=== PATIENT | female | born 1995 | race Caucasian/White ===

== ENCOUNTER 2019-09-02 14:04 | Outpatient (CLI) | payer BC, OTHER, SELFPAY ==
--- NOTE | 2019-09-02 14:15 | US_ITS ---
WS: [id number] EARLY OBSTETRICAL ULTRASOUND (<14 WEEKS). HISTORY: DATING COMPARISON: None available. Single intrauterine gestational sac is identified. Cardiac activity at 131 BPM. Pollock-rump length nanette sures 0.9 cm which corresponds to a gestation of 6w6d. Normal-appearing yolk sac and amnion demonstra karl. Smallsubchorionic hemorrhage.Subchorionic hemorrhage adjacent to the RIGHT lateral gestational s ac measures 14 x 7 mm. No free fluid. Neither ovary is well visualized. US/US OB <= 14 weeks fetus [id number] IMPRESSION: 1. Single intrauterine gestation of 6 weeks 6 days with an EDC of 04/21/2020. 2. Small subchorionic hemorrhage.
== END 2019-09-02 14:05 | disposition home or self-care (01) ==
LOC: RAD 14:13
PROVIDERS: PCP Family Medicine; Visit Provider Family Medicine
DX: Z36.87 Encounter for antenatal screening for uncertain dates (principal); Z3A.01 Less than 8 weeks gestation of pregnancy; O46.8X1 Other antepartum hemorrhage, first trimester
CPT/HCPCS: 76801

== ENCOUNTER 2019-10-23 11:25 | Emergency (ER) | payer BC, OTHER, MEDICAID, SELFPAY ==
[2019-10-23 12:15] VITALS: BP 124/80; PULSE 82; RESP 20; TEMP 36.8; O2SAT 99; BMI 27.3
--- NOTE | 2019-10-23 12:33 | USR_ITS ---
PROCEDURE INFORMATION: Exam: US Abdomen Complete Exam date and time: 10/23/2019 2:05 PM Age: 23 years old Clinical indication: Nausea and vomiting; ; Additional info: Abdominal pain TECHNIQUE: Imaging protocol: Real-time ultrasound of the abdomen with image documentation. COMPARISON: US OB <= 14 weeks fetus [id number] 10/23/2019 1:42 PM FINDINGS: Liver: Normal. No mass. Gallbladder: Normal. No gallstones. There is no gallbladder wall thickening. Common bile duct: Normal. No stones. No dilation. Pancreas: Visualized pancreas is unremarkable. Right kidney: Measures 10.7 x 4.9 x 4.2 cm. No mass. No hydronephrosis. Left kidney: Measures 11.5 x 4.6 x 4.4 cm. No mass. No hydronephrosis. Spleen: Normal. No splenomegaly. Aorta: Normal. No aneurysm. Inferior vena cava: Normal. US/US abdomen complete* [id number] IMPRESSION: No acute findings.
[2019-10-23 12:37] LABS: Basophils % 0.4 %; Eosinophils # 0.1 10^3/uL (0.0-0.8); Eosinophils % 1.8 %; Hematocrit 43.4 % (37.0-47.0); Hemoglobin 14.1 g/dL (11.5-15.3); Lymphocytes # 1.7 10^3/uL (0.8-4.8); Lymphocytes % 23.2 %; Mean Corpuscular HGB Conc 32.5 g/dL (30.0-36.0); Mean Corpuscular Hemoglobin 28.8 pg (28.0-34.0); Mean Corpuscular Volume 88.6 fL (81-99); Mean Platelet Volume 9.9 fL (7.4-10.4); Monocytes # 0.4 10^3/uL (0.2-0.9); Monocytes % 4.9 %; Neutrophils # 5.1 10^3/uL (1.8-7.7); Neutrophils % 69.3 %; Nucleated Red Blood Cells % 0 %; Platelet Count 221 10^3/cmm (130-400); Red Cell Distribution Width 12.3 % (12.1-15.1); White Blood Count 7.4 10^3/uL (4.0-10.0)
[2019-10-23 12:51] LABS: Alanine Aminotransferase 43 U/L (0-33); Albumin Level 4.3 g/dL (3.5-5.2); Alkaline Phosphatase 60 IU/L (35-105); Anion Gap 16.6 (5-19); Aspartate Amino Transferase 25 U/L (0-32); Blood Urea Nitrogen 6 mg/dL (6-20); Calcium 9.2 mg/dL (8.5-10.5); Carbon Dioxide 23 mmol/L (22-29); Chloride 98 mmol/L (98-107); Globulin 3.1 g/dL (1.3-4.6); Glomerular Filtration Rate 123.9 mL/min (90-130); Glucose 96 mg/dL (65-115); Lipase 26 U/L (13-60); Magnesium 2.1 mg/dL (1.7-2.3); Osmolality Calculated 274 mOsm/kg (285-295); Potassium 3.6 mmol/L (3.5-5.1); Sodium 134 mmol/L (136-145); Total Bilirubin 0.2 mg/dL (0.15-1.2); Total Protein 7.4 g/dL (6.6-8.7)
--- NOTE | 2019-10-23 13:15 | USR_ITS ---
PROCEDURE INFORMATION: Exam: US First Trimester, Transabdominal and US , Transvaginal Exam date and time: 10/23/2019 1:47 PM Age: 23 years old Clinical indication: Lmp or gestational age (in weeks): 14 wks 1 day; Other: Nausea/vomiting; ; Additional info: with n/v TECHNIQUE: Imaging protocol: Real-time transabdominal obstetrical ultrasound of the maternal pelvis and a first trimester , less than 14 weeks 0 days, with image documentation. Transvaginal imaging was used for better evaluation of the fetus and adnexa. COMPARISON: US OB <= 14 weeks fetus [id number] 09/02/2019 2:21 PM FINDINGS: There is a single living intrauterine with a heart rate of 157 bpm. movement is identified. The presentation is vertex. The estimated gestational age is 14 weeks and 1 day. US/US OB <= 14 weeks fetus [id number] Impression The estimated gestational age is 14 weeks and 1 day.
[2019-10-23] MEDS: sodium chloride 0.9% 1,000 ML 999 ML IV (13:19)
[2019-10-23] MEDS: metoclopramide 5 mg/mL SDV 2 mL 10 MG IV (13:23)
[2019-10-23 13:30] LABS: Bilirubin Urine Neg (NEGATIVE); Blood Urine Neg (Negative); Glucose Urine UA Norm (Normal); Ketones Urine Negative (Negative); Leukocyte Esterase Urine Negative (Negative); Nitrate Urine Negative (Negative); Protein Urine Neg (Negative); Sulfosalicylic Acid Urine Negative (Negative); Urine Appearance Clear (CLEAR); Urine Color Straw (Yellow); Urobilinogen Urine Norm (Negative); pH Urine 8 (5-7)
[2019-10-23 13:44] LABS: Add Urine Culture? No; Squamous Epithelial Cell Urine 0-4 (0-5)
--- NOTE | 2019-10-23 13:50 | W.ED.NAVMDI ---
HPI - Nausea/Vomiting/Diarrhea General: Chief complaint: Nausea/Vomiting/Diarrhea Stated complaint: , nauseous, dizzy Time Seen by Provider: 10/23/19 12:24 History of Present Illness: HPI Narrative: Analia is a nice 23-year-old female who comes in complaining of feeling lightheaded for the past 3 days. Today she is to began to vomit and prior to that she had only been nauseated. She denies any abdominal pain except for cramping abdominal pain just before she vomits. She does not report any diarrhea, flank pain, dysuria, urinary frequency/urgency, or vaginal discharge or bleeding. Of note the patient is about 12 weeks with her first . Denies any cardiac symptoms such as chest pain, palpitations or shortness of breath. She denies any near-syncope or syncope. She is unaware of anything that makes her symptoms better or worse. Associated nausea: Yes Associated symtoms: Reports dizziness and nausea; Denies altered mental status, change in vision, chest pain, diaphoresis, dysuria, fatigue, headache(s), malaise, palpitations or syncope Review of Systems Const: Denies: fever(s), chills, body aches, fatigue, malaise, night sweats or diaphoresis Eyes: Denies: change in vision, blurry vision or blind spots ENMT: Denies: throat pain, odynophagia, hoarseness, ear or mastoid pain, ear discharge, change in hearing or nasal discharge Card: Denies: chest pain, palpitations, irregular heart rhythm, lightheadedness, syncope, pre-syncope, dyspnea on exertion or orthopnea Resp: Denies: dyspnea, productive cough, non-productive cough, wheezing, hemoptysis or chest congestion GI: Reports: abdominal pain, nausea and vomiting; Denies: hematemesis, coffee ground emesis, heartburn, diarrhea, constipation, GI cramping, hematochezia or melena : Denies: flank pain, dysuria, urinary frequency, urinary urgency, oliguria, urinary incontinence or hematuria Musc: Denies: neck pain, back pain, extremity pain, extremity swelling, joint pain, joint swelling, joint redness, joint warmth or joint stiffness Skin/Breast: Denies: rash, pruritus, erythema, skin tenderness or jaundice Neuro: Reports: dizziness; Denies: headache(s), numbness in extremities, weakness in extremities, sensory changes, lack of coordination, difficulty walking, vertigo, confusion or Slurred speech present Endo: Denies: polyuria, polydipsia, tired all the time, cold intolerance, excessive sweating, flushing, hot flashes or heat intolerance Christian/Lymph: Denies: easy bruising, easy bleeding, petechiae, purpura or enlarged lymph nodes All/Imm: Denies: urticaria, throat swelling, tongue swelling, facial swelling or acute wheezing PFSH ED PFSH: Medical History No pertinent past medical history Surgical History No history of previous surgery Social History Smoking and tobacco status: never smoked Female Reproductive History: Date of last menstrual period: 06/25/19 Physical Exam Const: COMMON NORMALS: no acute distress, patient oriented x3, no limitations, healthy appearing and well nourished EXAM LIMITATIONS: no altered mental status GENERAL APPEARANCE: cooperative, well kempt and well developed HENMT: COMMON NORMALS: normocephalic, atraumatic, hearing grossly normal bilaterally, external ears normal, EAC's normal, Normal external nose present and moist oral mucous membranes HEAD & SCALP: normal to inspection, normocephalic and atraumatic FACE & SINUS: normal facial exam and face symmetric NOSE: Normal external nose present and Normal nares present EXTERNAL EAR: Yes external ears normal EXTERNAL AUDITORY CANAL: EAC's normal MOUTH: Normal oral and palatal mucosa present, lip normal and tongue normal Eye: COMMON NORMALS: Equal, round and reactive pupils present, EOMs intact bilaterally, conjunctivae normal and no scleral icterus GENERAL EYE: appearance normal, both eyes and all related structures ALIGNMENT: Yes alignment normal PERIORBITAL: periorbital findings normal EYELID: eyelids normal CONJUNCTIVA: Yes conjunctivae normal SCLERA: sclerae normal PUPIL: Yes Equal, round and reactive pupils present Neck/C-Spine: COMMON NORMALS: full ROM, no lymphadenopathy, supple, no meningeal signs and no JVD GENERAL: Yes normal visual inspection and Yes trachea midline CERVICAL SPINE: Yes cervical ROM normal Chest: COMMONS NORMALS: normal inspection of the chest and normal palpation of entire chest wall Resp: COMMON NORMALS: normal respiratory effort, No retractions, No use of accessory muscles and clear to auscultation bilaterally EFFORT & INSPECTION: Yes able to speak in complete sentences AUSCULTATION: clear to auscultation bilaterally, no crackles, no rales, no rhonchi and no wheezes Cardio: COMMON NORMALS: no JVD, regular rate, regular rhythm, S1 normal heart sound present, S2 normal heart sound present, No gallops present (Cardio), No clicks present (Cardio), No murmurs present (Cardio) and No rub (Cardio) RATE: regular rate RHYTHM: regular rhythm HEART SOUNDS: S1 normal heart sound present, S2 normal heart sound present, no click, no gallops, no murmurs and no rubs GI: COMMON NORMALS: Soft to palpation, non-tender, No hepatosplenomegaly present and no masses PALPATION: Yes Soft to palpation, No Tenderness to palpation present (GI), No Guarding due to palpation present (GI), No Rigid due to palpation, Yes No hepatosplenomegaly present, No Hernia present, No Palpable mass present and No Pulsatile mass present : COMMON NORMALS: Yes no CVA tenderness BLADDER/KIDNEY EXAM: Yes no CVA tenderness EXTERNAL FEMALE EXAM: No Hernia present Back/Pelvis: COMMON NORMALS: no CVA tenderness, thoracic and lumbar spine normal to inspection, no thoracic nor lumbar tenderness and thoraco-lumbar ROM normal Extremity: COMMON NORMALS: normal to inspection, full ROM, capillary refill normal, no joint enlargement, no clubbing, cyanosis or edema and no calf tenderness Neuro: COMMON NORMALS: patient oriented x3, CN's II-XII intact bilaterally, moves all extremities, no focal motor deficits and no sensory deficits noted MENINGEAL SIGNS: Yes no meningeal signs SPEECH: speech normal Psych: COMMON NORMALS: mental status grossly normal, Normal thought process present, cooperative, normal affect, speech normal and activity/motor behavior normal APPEARANCE: Yes well kempt SPEECH: Yes normal speech THOUGHT PROCESS: Normal thought process present Skin: COMMON NORMALS: no rashes or lesions noted, turgor normal, no jaundice, no petechiae and no mottling GENERAL SKIN EXAM: no rashes or lesions noted and turgor normal Course ED course: Orthostatic vital signs, normal but patient symptomatic. Vital Signs: Vital signs: Vital Signs Temperature 98.2 F 05/24/20 12:15 Pulse Rate 82 10/23/19 12:15 Respiratory Rate 20 H 10/23/19 12:15 Blood Pressure 124/80 10/23/19 12:15 Pulse Oximetry 99 10/23/19 12:15 MDM - Nausea/Vomiting/Diarrhea MDM Narrative: Medical decision making narrative: Kaylin is a nice 23-year-old female who comes in with lightheadedness and nausea. She is vomited so many times that she is now dry heaving. She denies any other symptoms such as chest pain, shortness of breath, leg pain or swelling, or fever. She only has mild cramping abdominal pain right before she vomits but at no other time. She has no lower abdominal pain. She has no urinary symptoms or vaginal discharge/bleeding. After Reglan and 2 L normal saline the patient is feeling much better. I have reviewed the case in full with Dr. Ortiz who is agreeable to recheck the patient in his office in the next few days. The patient understands though it is important to stay hydrated with her and she agrees to return should her symptoms worsen at all. Lab Data: Attestation: I reviewed the patient's lab results. Labs: Lab Results 10/23/19 10/23/19 10/23/19 Range/Units 12:30 12:30 12:30 WBC 7.4 (4.0-10.0) 10^3/ uL RBC 4.90 (4.1-5.3) 10^6/u L Hgb 14.1 (11.5-15.3) g/dL Hct 43.4 (37.0-47.0) % MCV 88.6 (81-99) fL MCH 28.8 (28.0-34.0) pg MCHC 32.5 (30.0-36.0) g/dL RDW 12.3 (12.1-15.1) % Plt Count 221 (130-400) 10^3/c mm MPV 9.9 (7.4-10.4) fL Neut % (Auto) 69.3 % Lymph % (Auto) 23.2 % [place] % (Auto) 4.9 % Eos % (Auto) 1.8 % Baso % (Auto) 0.4 % Neut # (Auto) 5.1 (1.8-7.7) 10^3/u L Lymph # (Auto) 1.7 (0.8-4.8) 10^3/u L [place] # (Auto) 0.4 (0.2-0.9) 10^3/u L Eos # (Auto) 0.1 (0.0-0.8) 10^3/u L Baso # (Auto) 0.0 (0.0-0.1) 10^3/u L Nucleated RBC % (a uto) 0 % Nucleated RBCs # 0.0 /100WBC Sodium 134 L (136-145) mmol/L Potassium 3.6 (3.5-5.1) mmol/L Chloride 98 (98-107) mmol/L Carbon Dioxide 23 (22-29) mmol/L Anion Gap 16.6 (5-19) BUN 6 (6-20) mg/dL Creatinine 0.6 (0.5-0.9) mg/dL GFR Calculation 123.9 (90-130) mL/min Glucose 96 (65-115) mg/dL Calculated Osmolal ity 274 L (285-295) mOsm/k g Calcium 9.2 (8.5-10.5) mg/dL Magnesium 2.1 (1.7-2.3) mg/dL Total Bilirubin 0.2 (0.15-1.2) mg/dL AST 25 (0-32) U/L ALT 43 H (0-33) U/L Alkaline Phosphata se 60 (35-105) IU/L Total Protein 7.4 (6.6-8.7) g/dL Albumin 4.3 (3.5-5.2) g/dL Globulin 3.1 (1.3-4.6) g/dL Lipase 26 (13-60) U/L Urine Color Straw (Yellow) Urine Appearance Clear (CLEAR) Urine pH 8 H (5-7) Ur Specific Gravit y 1.010 (1.005-1.030) Urine Protein Neg (Negative) Urine Glucose (UA) Norm (Normal) Urine Ketones Negative (Negative) Urine Blood Neg (Negative) Urine Nitrate Negative (Negative) Urine Bilirubin Neg (NEGATIVE) Prot Sulfosalicyli c Acd Negative (Negative) Urine Urobilinogen Norm (Negative) mg/dL Ur Leukocyte Aida ase Negative (Negative) Urine RBC None (0-2) /hpf Urine WBC None (0-5) /hpf Ur Squamous Epith Cells 0-4 H (0-5) Urine Bacteria None (NONE) Imaging Data^: US: Radiologist's impression: [address] [address] Ultrasound Report Signed Patient: Analia Alejandro Unit #: [id number] : 1995 Age/Sex: 23 / F ADM Date: 10/23/19 Loc: ER Room/Bed: Attending Dr: Ordering Provider/Ordering MD: Irma Colon DO Date of Service: 10/23/19 Procedure(s): US abdomen complete* [id number] Accession Number(s): [id number] Report Number: [id number] PROCEDURE INFORMATION: Exam: US Abdomen Complete Exam date and time: 10/23/2019 2:05 PM Age: 23 years old Clinical indication: Nausea and vomiting; ; Additional info: Abdominal pain TECHNIQUE: Imaging protocol: Real-time ultrasound of the abdomen with image documentation. COMPARISON: US OB <= 14 weeks fetus [id number] 10/23/2019 1:42 PM FINDINGS: Liver: Normal. No mass. Gallbladder: Normal. No gallstones. There is no gallbladder wall thickening. Common bile duct: Normal. No stones. No dilation. Pancreas: Visualized pancreas is unremarkable. Right kidney: Measures 10.7 x 4.9 x 4.2 cm. No mass. No hydronephrosis. Left kidney: Measures 11.5 x 4.6 x 4.4 cm. No mass. No hydronephrosis. Spleen: Normal. No splenomegaly. Aorta: Normal. No aneurysm. Inferior vena cava: Normal. US/US abdomen complete* [id number] IMPRESSION: No acute findings. Dictated By: Norbert Ryder MD Signed By: Norbert Ryder MD Signed Date/Time: 10/23/19 1448 DD/ 1446 US OB: Radiologist's impression: [address] [address] Ultrasound Report Signed Patient: Analia Alejandro Unit #: [id number] : 1995 Age/Sex: 23 / F ADM Date: 10/23/19 Loc: ER Room/Bed: Attending Dr: Ordering Provider/Ordering MD: Irma Colon DO Date of Service: 10/23/19 Procedure(s): US OB <= 14 weeks fetus [id number] Accession Number(s): [id number] Report Number: [id number] PROCEDURE INFORMATION: Exam: US First Trimester, Transabdominal and US , Transvaginal Exam date and time: 10/23/2019 1:47 PM Age: 23 years old Clinical indication: Lmp or gestational age (in weeks): 14 wks 1 day; Other: Nausea/vomiting; ; Additional info: with n/v TECHNIQUE: Imaging protocol: Real-time transabdominal obstetrical ultrasound of the maternal pelvis and a first trimester , less than 14 weeks 0 days, with image documentation. Transvaginal imaging was used for better evaluation of the fetus and adnexa. COMPARISON: US OB <= 14 weeks fetus [id number] 09/02/2019 2:21 PM FINDINGS: There is a single living intrauterine with a heart rate of 157 bpm. movement is identified. The presentation is vertex. The estimated gestational age is 14 weeks and 1 day. US/US OB <= 14 weeks fetus [id number] Impression The estimated gestational age is 14 weeks and 1 day. Dictated By: Norbert Ryder MD Signed By: Norbert Ryder MD Signed Date/Time: 10/23/191445 DD/ 1445 Discharge Plan Discharge Patient Disposition: Home, Self-Care Clinical Impression: Dehydration Vomiting Qualifiers: Vomiting type: unspecified Vomiting Intractability: non-intractable Nausea presence: with nausea Qualified Code(s): R11.2 - Nausea with vomiting, unspecified Condition: Stable Prescriptions: New Reglan 10 mg tablet 10 mg PO Q6H PRN (Reason: nausea and vomiting) Qty: 20 RF: 0 No Action cetirizine 10 mg Tablet 10 mg PO DAILY RF: 0 Sleep Aid (diphenhydramine) 25 mg Capsule 25 mg PO BEDTIME PRN (Reason: Sleep) RF: 0 28 mg iron- 800 mcg Tablet 1 tab PO DAILY RF: 0 Discharge Orders: Discharge Order (Routine); Ordered 10/23/19 Ordered By: Irma Colon Referrals: Loi Ortiz MD [Primary Care Provider] - 1-3 days Discharge Diet: Advance as tolerated and Clear Liquid Discharge Activity: Increase activity as tolerated Patient Instructions: Dehydration (ED), Acute Nausea and Vomiting (ED), Abdominal Pain (ED) Activity Restrictions/Additional Instructions: Please return to the ER immediately for any of the signs or symptoms listed on your discharge instruction sheets, worsening/changing of your symptoms, you are not getting better as quickly as expected, or for ANY other cause or concerns. Be certain to follow-up with Dr. Ortiz as soon as possible for recheck. Be certain to return to the ER if your abdominal pain or vomiting return. Coding Level of Care Code ED [employer] F[employer] Exam Comprehensive
[2019-10-23] MEDS: acetaminophen 500 mg Tablet 1000 MG PO (15:37)
[2019-10-23 15:39] VITALS: BP 113/68; PULSE 89; RESP 16; O2SAT 100
== END 2019-10-23 15:47 | disposition home or self-care (01) ==
PROVIDERS: Emergency Provider Emergency Medicine; PCP Family Medicine
DX: O26.891 Other specified pregnancy related conditions, first trimester (principal); E86.0 Dehydration; R11.2 Nausea with vomiting, unspecified; Z3A.12 12 weeks gestation of pregnancy
CPT/HCPCS: 12345; 36415; 76700; 76801; 80053; 81001; 83690; 83735; 85025; 96360; 96361; 96374; 99283; J2765; J7030

== ENCOUNTER 2019-12-02 07:03 | Outpatient (CLI) | payer BC, OTHER, SELFPAY ==
--- NOTE | 2019-12-02 07:18 | US_ITS ---
WS: [id number] ULTRASOUND OB COMPLETE TECHNIQUE: Complete ultrasound. CLINICAL INFORMATION: SUPERVISION OF NORMAL COMPARISON: None. FINDINGS: Single interuterine gestation is identified with cephalic presentation. Placenta is right posterior. Placenta grade 0. Normal amniotic fluid volume. cardiac activity: 150 BPM. AGA: 20w0d LILLY by ultrasound: 04/20/2020 Estimated weight: 327 g BDP: 4.7 cm = 20w1d HC: 17.7 cm = 20w1d AC: 14.6 cm = 19w6d FEMUR LENGTH: 3.2 cm = 20w0d Anatomic survey: Anatomic survey is normal. Normal stomach. Kidneys and bladder are normal. Normal 3 vessel cord. Norm al 3 vessel cord insertion. Normal 4 chamber heart. Normal spine. Intracranial contents are normal. N ormal posterior fossa and cisterna magna. US/US OB >= 14 weeks fetus [id number] IMPRESSION: 1. Single intrauterine with visualized cardiac activity. AGA 20w0d w ith LILLY 04/20/2020. 2. Placenta is posterior. No evidence of abruption or previa. 3. anatomic survey is normal. 4. Normal amniotic fluid volume. 5. Cervix 4.1 cm
== END 2019-12-02 07:04 | disposition home or self-care (01) ==
LOC: RAD 07:09
PROVIDERS: PCP Family Medicine; Visit Provider Family Medicine
DX: Z34.92 Encounter for supervision of normal pregnancy, unspecified, second trimester (principal); Z3A.20 20 weeks gestation of pregnancy
CPT/HCPCS: 76805

== ENCOUNTER → 2020-01-20 08:12 | Day surgery (SDC) | payer BC, OTHER, MEDICAID, SELFPAY ==
[2020-01-20 08:32] VITALS: BP 120/71; PULSE 109; RESP 18; TEMP 36.6; O2SAT 97
[2020-01-20 11:29] VITALS: BP 117/62; PULSE 109; RESP 18; TEMP 37.1; O2SAT 87
== END ==
PROVIDERS: PCP Family Medicine; Visit Provider Family Medicine
DX: Z34.00 Encounter for supervision of normal first pregnancy, unspecified trimester (principal)
CPT/HCPCS: 36415; 86850; 86900; 90384; 96372

== ENCOUNTER 2020-04-14 10:57 | Outpatient (CLI) | payer BC, OTHER, MEDICAID, SELFPAY ==
[2020-04-15 00:18] LABS: Total Volume, Urine 1650 mL; Urine Total Protein 24 Hour 6.3 mg/dL (0-150)
--- NOTE | 2020-04-16 20:51 | P.HP_ITS ---
Providers/Chief Complaint Primary Care Provider: Loi Ortiz MD Chief Complaint: SUPERVISION,NORMAL History of Present Illness Analia Alejandro is a 24 year old at 39.1 weeks gestation by 6-week ultrasound inconsistent with LMP. Her is complicated by Rh-, elevated 1 hour GTT with normal 3-hour GTT, GBS positive, gestational hypertension. The patient had been feeling well up until late last week when she began to have borderline blood pressures in the upper 130s and lower 140s systolic. She then began to have intermittent chest pains with dizziness and headache associated with activity that was improved with rest. The patient had labs over the weekend and did not have signs of preeclampsia, and her symptoms improved, however her blood pressures have persisted in the 140s systolic. For this reas on she was brought in for induction of labor secondary to gestational hypertension in order to prevent this from progressing to more severe disease. The patient currently denies any chest pains, shortness of breath, headache, flashes of light, nausea, vision changes, vaginal bleeding, leakage of fluid, contractions. Medications/Allergies Home Medications Medication Instructions Recorded Confirmed Last Taken Type PNV cmb#95-ferrous fumarate-FA 1 tab PO DAILY 10/23/19 01/20/20 10/22/19 History [] cetirizine 10 mg PO DAILY 10/23/19 01/20/20 01/19/20 20:00 History diphenhydramine HCl [Sleep Aid 25 mg PO BEDTIME PRN 10/23/19 01/20/20 10/22/19 History (diphenhydramine)] Allergies Allergy/AdvReac Type Severity Reaction Status Date / Time latex Allergy ALGY-Rash Verified 10/23/19 12:21 PFSH Acute PFSH: Medical History (Updated 04/16/20 @ 20:56 by Loi Ortiz MD) No pertinent past medical history Surgical History (Updated 04/16/20 @ 20:53 by Loi Ortiz MD) H/O right knee surgery No history of previous surgery Family History (Updated 04/16/20 @ 20:54 by Loi Ortiz MD) Mother Behcet's disease Rheumatoid arthritis Lung disease Social History Smoking and tobacco status: never smoked Female Reproductive History: Date of last menstrual period: 01/25/20 Physical Exam Narrative: EXAM NARRATIVE: General: Alert and oriented x3 Eyes: Pupils equal round and reactive to light and accommodation Mouth: Mucous membranes moist, pharynx non-erythematous Cardiac: Regular rate and rhythm without murmurs Lungs: Clear to auscultation bilaterally without wheezes, crackles or rhonchi Abdomen: Soft, non-tender, fundus consistent with gestational age Extremities: +1 pitting edema in the bilateral lower extremities A&P Assessment and plan (1) Intrauterine : Status: Acute (2) Gestational hypertension: Status: Acute (3) Rh negative state in antepartum period: Status: Acute (4) Positive GBS test: Status: Acute Additional A&P Information The patient is being brought in for induction of labor secondary to gestational hypertension. She is currently feeling well. Cytotec has been placed as her initial cervical exam was 1 cm dilated with 20% effacement and posterior location. heart tones are category 1 tracing and the patient does not have any contractions. I discussed the benefits of induction of labor versus risks and the patient was in agreement with induction. We discussed the Cytotec and Pitocin for induction of labor specifically. All questions were answered. Proceed with routine induction of labor for gestational hypertension. Labs do not show signs of complications at this time. Attestations Medical Necessity Statement*: Patient will be here for greater than 2 midnights due to routine intrapartum and management of labor and delivery. Coding Level of Care Code Acute [employer] Fwd Diagnoses Intrauterine Z34.90 Gestational hypertension O13.9 Rh negative state in antepartum period O26.899; Z67.91 Positive GBS test B95.1
== END 2020-04-14 10:58 | disposition home or self-care (01) ==
LOC: LAB 10:59
PROVIDERS: PCP Family Medicine; Visit Provider Family Medicine
DX: Z34.00 Encounter for supervision of normal first pregnancy, unspecified trimester (principal); R03.0 Elevated blood-pressure reading, without diagnosis of hypertension
CPT/HCPCS: 12345; 84156

== ENCOUNTER 2020-04-16 18:00 | Inpatient (IN) | payer BC, OTHER, SELFPAY ==
[2020-04-16] VITALS (10 sets, daily range): BP systolic 0–146; BP diastolic 0–86; PULSE 67–98; RESP 17; TEMP 37; BMI 32.7
[2020-04-16] MEDS: miSOPROStol 100 mcg tablet 25 MCG VAGINAL ×2 (19:29→23:28)
[2020-04-16 19:50] LABS: Basophils % 0.3 %; Eosinophils # 0.1 10^3/uL (0.0-0.8); Eosinophils % 1.4 %; Hematocrit 34.1 % (37.0-47.0); Hemoglobin 10.9 g/dL (11.5-15.3); Lymphocytes # 1.8 10^3/uL (0.8-4.8); Lymphocytes % 24.4 %; Mean Corpuscular Hemoglobin 27.3 pg (28.0-34.0); Mean Corpuscular Volume 85.5 fL (81-99); Mean Platelet Volume 12.1 fL (7.4-10.4); Monocytes # 0.5 10^3/uL (0.2-0.9); Monocytes % 6.9 %; Neutrophils # 4.81 10^3/uL (1.8-7.7); Neutrophils % 66.6 %; Nucleated Red Blood Cells % 0 %; Platelet Count 231 10^3/cmm (130-400); Red Blood Count 3.99 10^6/uL (4.1-5.3); Red Cell Distribution Width 13.2 % (12.1-15.1); White Blood Count 7.2 10^3/uL (4.0-10.0)
--- NOTE | 2020-04-16 19:53 | ANES.PREANE2 ---
Pre-Anesthetic Assessment Pre-Anesthetic Assessment: Height/Weight: Height 1.73 m Pulse BP 93 136/81 04/16/20 19:35 04/16/20 19:35 Preop Diagnosis: IUP Proposed Procedure: Labor epidural Familial anesthetic complications: denies Was Beta Mike taken within 24 hours: N/A Last Intake: 04:29 Social: Social History: No alcohol and No tobacco Exam: Pre-Anes Outpt Exam: alert, oriented x 3 and clear to auscultation bilaterally Airway: Submandibular: WNL Cervical ROM: WNL MP: 1 Pulmonary: Pulmonary: None reported CV/HEM: CV/HEM: HTN : : None reported Hepatic: Hepatic: None reported GI: GI: GERD Metabolic: Metabolic: DM (controlled with diet and exercise ) Musc/skel: Musc/skel: None reported Neuropsych: Neuropsych: None reported Anesthetic Plan: ASA status: 2 Anesthesia: Anesthesia Evaluation and Eval. for regional block (epidural) Meds/Allergies Current Medications: Current Medications Generic Name Dose Route Start Last Admin Trade Name Joshq PRN Reason Stop Dose Admin Misoprostol 25 mcg 04/16/20 19:15 04/16/20 19:29 Misoprostol 100 Mcg Tablet VAGINAL 04/17/20 03:16 25 mcg Q4H TARUN Administration PFSH Anesthesia PFSH: Medical History No pertinent past medical history Surgical History No history of previous surgery Social History Smoking and tobacco status: never smoked Female Reproductive History: Date of last menstrual period: 06/25/19 Data Anesthesia CBC & Chem 7: 04/16/20 18:48 04/16/20 18:45 Other Labs: Laboratory Results - last 48 hr 04/16/20 18:48 WBC 7.2 RBC 3.99 L Hgb 10.9 L Hct 34.1 L MCV 85.5 MCH 27.3 L MCHC 32.0 RDW 13.2 Plt Count 231 MPV 12.1 H Neut % (Auto) 66.6 Lymph % (Auto) 24.4 [place] % (Auto) 6.9 Eos % (Auto) 1.4 Baso % (Auto) 0.3 Neut # (Auto) 4.81 Lymph # (Auto) 1.8 [place] # (Auto) 0.5 Eos # (Auto) 0.1 Baso # (Auto) 0.0 Nucleated RBC % (auto) 0 Nucleated RBCs # 0.0 Cardiac Studies: No Data to Display
[2020-04-16 20:11] LABS: Alanine Aminotransferase 14 U/L (0-33); Albumin Level 3.5 g/dL (3.5-5.2); Alkaline Phosphatase 112 IU/L (35-105); Anion Gap 15.6 (5-19); Aspartate Amino Transferase 15 U/L (0-32); Blood Urea Nitrogen 6 mg/dL (6-20); Calcium 8.4 mg/dL (8.5-10.5); Carbon Dioxide 20 mmol/L (22-29); Chloride 107 mmol/L (98-107); Globulin 2.5 g/dL (1.3-4.6); Glomerular Filtration Rate 122.8 mL/min (90-130); Glucose 146 mg/dL (65-115); Osmolality Calculated 288 mOsm/kg (285-295); Potassium 3.6 mmol/L (3.5-5.1); Sodium 139 mmol/L (136-145); Total Bilirubin 0.2 mg/dL (0.15-1.2); Uric Acid 5.8 mg/dL (2.4-5.7)
[2020-04-16 20:20] LABS: D Dimer 0.63 ug/mIFEU (0-0.59)
[2020-04-16 20:52] LABS: Urine Creatinine 171 mg/dL (28-217); Urine Protein Random 20 mg/dL
[2020-04-16 20:56] LABS: UPRO/UCREAT Ratio 0.12 mg/mg CR
[2020-04-16] MEDS: dextrose 5%-lactated ringers 1,000 ML 125 ML IV (22:00)
[2020-04-16] MEDS: ampicillin 2,000 MG in sodium chloride 0.9% (plus) 50 ML 100 MG IV (22:00)
[2020-04-17] VITALS (33 sets, daily range): BP systolic 0–154; BP diastolic 0–95; PULSE 67–105; RESP 15; TEMP 36.6–36.8
[2020-04-17] MEDS: ampicillin 1,000 MG in sodium chloride 0.9% (plus) 50 ML 100 MG IV ×6 (02:14→23:17)
[2020-04-17] MEDS: miSOPROStol 100 mcg tablet 25 MCG VAGINAL (03:56)
--- NOTE | 2020-04-17 08:29 | PM.PN ---
Subjective Subjective: Interval history: The patient is feeling well at this time. She received 3 doses of Cytotec overnight. She did not make much cervical change with this. heart tones are in the mid 130s with moderate variability good accelerations. The patient has not had any bleeding or leakage of fluid. Vitals/I&O/Wt Last Vital Signs Temp 97.8 F 04/17/20 07:25 Pulse 83 04/17/20 07:13 Resp 17 04/16/20 19:08 BP 131/75 04/17/20 07:13 04/16/20 04/17/20 04/17/20 22:59 06:59 14:59 Intake Total 50 / 50 Balance 50 / 50 Weight last 48 hrs Weight 209 lb Physical Exam Narrative: EXAM NARRATIVE: General: Alert and oriented x3 Cardiac: Regular rate and rhythm without murmurs Lungs: Clear to auscultation bilaterally without wheezes, crackles or rhonchi Abdomen: Soft, non-tender, fundus consistent with gestational age Extremities: +1 pitting edema in the bilateral lower extremities Data : 04/16/20 18:48 04/16/20 18:45 A&P Additional A&P Information Patient is feeling well at this time. She is miquel irregularly every 2 to 5 minutes. She received 3 doses of Cytotec overnight. She did not make much cervical change and is still 1 cm dilated with approximately 30% effacement. Patient's heart tones are in the mid 130s with moderate variability and good accelerations with a category 1 tracing. Blood pressures are currently in the 130s systolic. We will plan to let her have a short break and eat. After this we will plan to start IV Pitocin. If the patient is not making cervical change adequately, we may need to step back and place a Nolan bulb. The plan was discussed with the patient and her and they are in agreement with the current plan of care. All questions were answered. Attestations Medical Necessity Statement*: The patient will be here for greater than 2 midnights due to intrapartum and management of labor and delivery. Coding Level of Care Code Acute Health Care Manager for Mine Gallardo
[2020-04-17] MEDS: oxytocin 30 UNIT/500 ML BAG 4 UNIT IV (10:21)
[2020-04-17] MEDS: dextrose 5%-lactated ringers 1,000 ML 125 ML IV ×2 (11:13→19:55)
[2020-04-17 17:15] LABS: Coronavirus Lab Test PTC Negative
[2020-04-17] MEDS: butorphanol 2 mg/mL SDV 1 mL 1 MG IVP (19:27)
[2020-04-18] VITALS (135 sets, daily range): BP systolic 0–176; BP diastolic 0–115; PULSE 46–116; RESP 14–18; TEMP 36.6–38.8; O2SAT 86–100
[2020-04-18] MEDS: ampicillin 1,000 MG in sodium chloride 0.9% (plus) 50 ML 100 MG IV ×4 (03:41→15:10)
[2020-04-18] MEDS: dextrose 5%-lactated ringers 1,000 ML 125 ML IV ×2 (03:41→15:10)
[2020-04-18] MEDS: butorphanol 2 mg/mL SDV 1 mL 1 MG IVP (05:26)
[2020-04-18] MEDS: lactated ringers 1,000 ML 999 ML IV (06:27)
--- NOTE | 2020-04-18 07:28 | ANES.PROC ---
Anesthesia Procedures Procedure/Date: 04/18/20 Epidural: Time Out Performed: Yes Consents Signed: Procedure Consent Consent: requested by attending/covering physician Lumbar Level: L3-L4 Epidural position: sitting Epidural procedure: sterile prep of area, 1% lidocaine to numb the area, 18 g needle, negative for paresthesia passed, neg for paresthesia, test dose given, 1.5% xylocaine 1:200k epi (5ml), placed PCEA, no systemic response, sterile dressing applied, L.U.D. no apparent complications and 0.2% Ropiavacaine @ mls/hr (13)
--- NOTE | 2020-04-18 08:34 | PM.PN ---
Subjective Subjective: Interval history: Yesterday evening the patient was not making significant change after 3 dose of Cytotec and IV Pitocin, so a Nolan bulb was placed. This came out after a couple of hours and she was 4 cm dilated. Overnight she continued to contract and by this morning requested an epidural. She is currently comfortable with an epidural. She denies any headaches or seeing spots. Vitals/I&O/Wt Last Vital Signs Temp 98.6 F 04/18/20 06:51 Pulse 83 04/18/20 08:23 Resp 18 04/18/20 06:51 BP 156/78 04/18/20 08:23 Pulse Ox 86 L 04/18/20 07:24 04/17/20 04/18/20 04/18/20 22:59 06:59 14:59 Intake Total 1061.8 / 7340.286 9143.300 / 2547.033 Balance 1061.8 / 9877.832 3225.300 / 2547.033 Weight last 48 hrs Weight 209 lb Physical Exam Narrative: EXAM NARRATIVE: General: Alert and oriented x3 Cardiac: Regular rate and rhythm without murmurs Lungs: Clear to auscultation bilaterally without wheezes, crackles or rhonchi Abdomen: Soft, non-tender, fundus consistent with gestational age Extremities: +1 pitting edema in the bilateral lower extremities Data : 04/16/20 18:48 04/16/20 18:45 A&P Additional A&P Information SROM took place at approximately 4:30 AM on 04/18/2020. The patient received a laboring epidural and initially had some lights afterwards, however these improved with decreasing Pitocin and position change with fluid bolus. Currently heart tones are in the mid 150s with moderate variability but accelerations. There is a category 1 tracing currently. Contractions are currently sporadic every 2 to 5 minutes. We will work on gradually increasing the Pitocin as tolerated. We will work on position changes and follow from there. Currently the patient is only 5 cm dilated with 90% effacement. Continue with induction of labor at this time. All questions were answered. The patient and her are in agreement with the current plan of care. Attestations Medical Necessity Statement*: The patient continues need inpatient care for induction of labor. Coding Level of Care Code Acute Counterintelligence Specialist for Miladisg Paulina
[2020-04-18] MEDS: GENTAMICIN IV (16:41)
[2020-04-18] MEDS: SODIUM CHLORIDE 0.9% IV (16:41)
[2020-04-18] MEDS: labetalol 5 mg/mL SDV 20mL 20 MG IVP (17:30)
[2020-04-18] MEDS: clindamycin 900 MG/50 ML PREMIX 100 MG IV (18:14)
[2020-04-18] MEDS: miSOPROStol 200 mcg Tablet 800 MCG PR (19:30)
[2020-04-18] MEDS: lidocaine 2% INJ 20 mL INJECTION (19:34)
[2020-04-18] MEDS: oxytocin 30 UNIT/500 ML BAG 600 UNIT IV (19:37)
--- NOTE | 2020-04-18 20:51 | PM.DELIVERY ---
Delivery Note: Date of delivery: April 18, 2020 Pre-delivery diagnoses: 1. Intrauterine at 39.3 weeks gestation 2. Rh- 3. Elevated 1 hour GTT with normal 3-hour GTT 4. GBS positive 5. Gestational hypertension 6. Prolonged rupture of membranes with intrapartum fever Post-delivery diagnoses: 1. Intrauterine status post spontaneous vaginal delivery at 39.3 weeks gestation 2. Rh- 3. Elevated 1 hour GTT with normal 3-hour GTT 4. GBS positive 5. Gestational hypertension 6. Prolonged rupture of membranes with intrapartum fever 7. Delivery of healthy infant male weighing 6 pounds 12 ounces with Apgars of 7 and 9 with noted congenital abnormalities Procedure: Spontaneous vaginal delivery Op report anesthesia: Epidural Delivering Physician: Loi Ortiz MD Estimated blood loss (mL): 200 Findings: Analia Alejandro is a 24 year old G1 now P1 status post spontaneous vaginal delivery at 39.3 weeks gestation by 6-week ultrasound inconsistent with LMP. Her is complicated by Rh-, elevated 1 hour GTT with normal 3-hour GTT, GBS positive, gestational hypertension. 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 Pre-Delivery Course: The patient was brought in for induction of labor on the evening of 04/16/2020 secondary to new onset gestational hypertension. Her initial exam was 3. She was given 3 doses of Cytotec and did not make significant change. The following morning she was started on IV Pitocin. By that evening she had made minimal change but her cervix was minimal to a Nolan bulb placed. A Nolan bulb was placed and a couple of hours later came out and she was 4 cm dilated. She was continued on IV Pitocin and by the morning she was 5 cm. She had SROM on the morning of 04/18/2020 at 4:30 AM. The patient received a laboring epidural and then started to make change. She made slow but gradual change and was complete by 1632 on 04/18/2020. She did spike a fever at approximately 12 hours after rupture of membranes. For this reason she was started on gentamicin and clindamycin IV. Delivery: The patient began pushing at 1652 on 04/18/2020. She pushed well. She did have a couple of elevated blood pressures above 160 so was given 1 dose of labetalol 20 mg. Her blood pressure stayed in the non-severe range after this. The patient continued to push and made gradual and steady progress. The delivered at 1917 on 04/18/2020. The infant delivered in the OA position. The right shoulder was the anterior shoulder and it delivered with ease. The rest of the delivered with ease. There was no nuchal cord. The infant's mouth and nose were bulb suctioned by myself. The began to cry shortly afterwards. The infant was placed on the mother's chest where the nurses were waiting to care for him. The cord was clamped by myself after approximately 1 minute and cut by the infant's father. Cord blood was obtained. The cord was then drained of blood and traction was placed on the umbilical cord. The placenta delivered without complication at 1925 on 04/18/2020. The placenta was noted to be intact with a central umbilical cord insertion site. Following delivery of the placenta the patient began to have heavier bleeding. IV Pitocin was bolused. She continued to have extra bleeding, so Cytotec 800 mcg was placed rectally. With this and fundal massage, the bleeding slowed down. The cervix was inspected and no lacerations were noted. The vaginal wall was inspected and bilateral second-degree lacerations were noted on the vaginal wall and labia. These were repaired using 2-0 Vicryl on the left labia wall in a running fashion. 2% lidocaine was placed locally for anesthesia. The lesion on the right was replaced using 4-0 Vicryl in a running fashion. 2% lidocaine was also placed. The patient tolerated this well. A digital rectal exam was done and no sutures were noted. Lap and instrument counts were correct. Currently both the mother and are doing well. Post-Delivery Status: The was noted to have some congenital deformities. Further work-up will be done to evaluate these. Coding Level of Care Code Acute Tube Cutter for Mine Gallardo
[2020-04-18] MEDS: ibuprofen 800 mg tablet PO (23:00)
[2020-04-19] VITALS (7 sets, daily range): BP systolic 120–148; BP diastolic 69–86; PULSE 66–90; RESP 16–19; TEMP 36.5–37.1; O2SAT 98–99
[2020-04-19] MEDS: prenatal vitamin Capsule 1 CAP PO (08:35)
[2020-04-19] MEDS: ibuprofen 800 mg tablet PO ×3 (08:35→21:08)
[2020-04-19] MEDS: docusate sodium 100 mg Capsule PO ×2 (08:35→21:08)
[2020-04-19] MEDS: benzocaine-menthol 78 gm Canister 1 SPRAY TOPICAL (09:13)
[2020-04-19 11:04] LABS: Hematocrit 28.3 % (37.0-47.0); Hemoglobin 9.2 g/dL (11.5-15.3); Mean Corpuscular HGB Conc 32.5 g/dL (30.0-36.0); Mean Corpuscular Volume 86.3 fL (81-99); Mean Platelet Volume 11.8 fL (7.4-10.4); Platelet Count 194 10^3/cmm (130-400); Red Blood Count 3.28 10^6/uL (4.1-5.3); Red Cell Distribution Width 13.7 % (12.1-15.1); White Blood Count 16.6 10^3/uL (4.0-10.0)
--- NOTE | 2020-04-19 11:16 | ANE.PACU2 ---
Inpatient post-anesthesia follow up: Airway intact: Yes Vital signs: Temperature 97.7 F Pulse Rate 66 Respiratory Rate 18 Blood Pressure 127/69 Pulse Oximetry 99 Oxygen Delivery Me thod Room Air Oxygen Flow Rate Fraction of Inspir ed Oxygen Hydration adequate: Yes Nausea and vomiting: No Pain level: 1 Mental status: Baseline Additional Comments: Neuraxial site free of signs of infection, no numbness/tingling in legs, up and walking no headaches, urinating without lynn
--- NOTE | 2020-04-19 19:34 | PM.DCS ---
Discharge Providers Date of Admission: 04/17/20 15:00 Date of Discharge: April 19, 2020 Attending Provider at Admission: Loi Ortiz MD Attending Provider at Discharge: Loi Ortiz MD Primary Care Provider: Loi Ortiz MD Diagnoses at Discharge Discharge Diagnosis (1) Gestational hypertension: Status: Acute (2) Intrauterine : Status: Acute Reason for Visit Reason for Visit: INDUCTION Hospital Course Hospital Course The patient was brought in for induction of labor on the evening of 04/16/2020 secondary to new onset gestational hypertension. Her initial exam was . She was given 3 doses of Cytotec and did not make significant change. The following morning she was started on IV Pitocin. By that evening she had made minimal change but her cervix was minimal to a Nolan bulb placed. A Nolan bulb was placed and a couple of hours later came out and she was 4 cm dilated. She was continued on IV Pitocin and by the morning she was 5 cm. She had SROM on the morning of 04/18/2020 at 4:30 AM. The patient received a laboring epidural and then started to make change. She made slow but gradual change and was complete by 1632 on 04/18/2020. She did spike a fever at approximately 12 hours after rupture of membranes. For this reason she was started on gentamicin and clindamycin IV. Delivery: The patient began pushing at 1652 on 04/18/2020. She pushed well. She did have a couple of elevated blood pressures above 160 so was given 1 dose of labetalol 20 mg. Her blood pressure stayed in the non-severe range after this. The patient continued to push and made gradual and steady progress. The infant delivered at 191 on 04/18/2020. The infant delivered in the OA position. The right shoulder was the anterior shoulder and it delivered with ease. The rest of the infant delivered with ease. There was no nuchal cord. The 's mouth and nose were bulb suctioned by myself. The began to cry shortly afterwards. The infant was placed on the mother's chest where the nurses were waiting to care for him. The cord was clamped by myself after approximately 1 minute and cut by the 's father. Cord blood was obtained. The cord was then drained of blood and traction was placed on the umbilical cord. The placenta delivered without complication at 192 on 04/18/2020. The placenta was noted to be intact with a central umbilical cord insertion site. Following delivery of the placenta the patient began to have heavier bleeding. IV Pitocin was bolused. She continued to have extra bleeding, so Cytotec 800 mcg was placed rectally. With this and fundal massage, the bleeding slowed down. The cervix was inspected and no lacerations were noted. The vaginal wall was inspected and bilateral second-degree lacerations were noted on the vaginal wall and labia. These were repaired using 2-0 Vicryl on the left labia wall in a running fashion. 2% lidocaine was placed locally for anesthesia. The lesion on the right was replaced using 4-0 Vicryl in a running fashion. 2% lidocaine was also placed. The patient tolerated this well. A digital rectal exam was done and no sutures were noted. Lap and instrument counts were correct. Post-Delivery Status: Currently the patient is doing well . Her blood pressures have been well controlled. They have been in the 120s to 140s systolic. She is currently asymptomatic without headaches, nausea, seeing spots, dizziness. Her bleeding is decreasing well. She is ambulating, voiding, and tolerating food by mouth. I spoke with her about routine discharge instructions and that in general I would like to keep her a little bit longer for monitoring, however that she seems to be stable at this time and because her is being transferred to [place] that we could consider discharge home this evening. She agreed to this. The patient was advised that she needs to keep her overall activity level low and that if she is showing any signs of concerns to let me know right away. All questions were answered. The patient and her are in agreement with the current plan of care. The infant was noted to have some congenital deformities. Further work-up will be done to evaluate these. He will also be transferred to [place] secondary to complications with hypoglycemia. Physical Exam Narrative: EXAM NARRATIVE: General: Alert and oriented x3 Cardiac: Regular rate and rhythm without murmurs Lungs: Clear to auscultation bilaterally without wheezes, crackles or rhonchi Abdomen: Soft, non-tender, fundus is firm and 2 cm below the umbilicus Extremities: +1 pitting edema in the bilateral lower extremities Urinary Catheter Management^: Nolan Latex Free: Cath Placed During This Visit: yes Reason for Continuing Indwelling Catheter: Not indwelling catheter Urinary Catheter Date of Insertion: 04/18/20 Urinary Catheter Time of Insertion: 08:15 Discharge Data Data Completed and Pending: Labs from last 24 hours 04/19/20 10:05 WBC 16.6 H RBC 3.28 L Hgb 9.2 L Hct 28.3 L MCV 86.3 MCH 28.0 MCHC 32.5 RDW 13.7 Plt Count 194 MPV 11.8 H Vitals: Last Vital Signs Temp 97.9 F 04/19/20 17:15 Pulse 79 04/19/20 17:15 Resp 16 04/19/20 17:15 BP 148/86 04/19/20 17:15 Pulse Ox 98 04/19/20 17:15 Discharge Plan Discharge Patient Disposition: Home Condition: Stable Prescriptions: New hydrocodone-acetaminophen 5-325 mg Tablet 1 tab PO Q6H PRN (Reason: Moderate To Severe Pain) Qty: 15 RF: 0 ibuprofen 800 mg Tablet 800 mg PO TID Qty: 60 RF: 0 ferrous sulfate 325 mg (65 mg iron) tablet 325 mg PO BID Qty: 30 RF: 0 Continued cetirizine 10 mg Tablet 10 mg PO DAILY RF: 0 diphenhydramine HCl [Sleep Aid (diphenhydramine)] 25 mg Capsule 25 mg PO BEDTIME PRN (Reason: Sleep) RF: 0 PNV [id number] fumarate-FA [] 28 mg iron- 800 mcg Tablet 1 tab PO DAILY RF: 0 famotidine 20 mg Tablet 20 mg PO DAILY RF: 0 Discharge Orders: Discharge Order (Routine); Ordered 04/19/20 Ordered By: Loi Ortiz Referrals: Loi Ortiz MD [Primary Care Provider] - 6 Weeks (Please make a follow up appointment for the next week upon discharge of infant) Discharge Diet: Regular Discharge Activity: Limit activity as instructed Activity Restrictions/Additional Instructions: Nothing per vagina for 6 weeks. No baths for 6 weeks. Showers are okay. If you have any concern for fevers, increased bleeding, worsening blood pressures or other concerns, please seek immediate medical attention or call [facility] for further instructions. Discharge Attestations Time Spent in Discharge Care*: greater than 30 min Specific Discharge Activities: educating patient, educating and/or supporting family/caregiver and documenting/other paperwork Quality Metrics Clinical Quality Measures During this hospital stay, did patient experience: None Coding Level of Care Code Acute Full Stack Php Developer for Chg Fwd Diagnoses Gestational hypertension O13.9 Intrauterine Z34.90
== END 2020-04-19 21:45 | disposition home or self-care (01) | DRG 806 ==
PROVIDERS: Admitting Provider Family Medicine; PCP Family Medicine; Visit Provider Family Medicine
DX: O24.420 Gestational diabetes mellitus in childbirth, diet controlled (principal); O36.0930 Maternal care for other rhesus isoimmunization, third trimester, not applicable or unspecified; Z37.0 Single live birth; O16.4 Unspecified maternal hypertension, complicating childbirth; O99.824 Streptococcus B carrier state complicating childbirth; O62.4 Hypertonic, incoordinate, and prolonged uterine contractions; O70.1 Second degree perineal laceration during delivery; Z3A.39 39 weeks gestation of pregnancy
CPT/HCPCS: 12345; 36415; 51702; 59409; 80053; 82570; 84156; 84550; 85025; 85027; 85378; 87635; 96375; 98960; G0378; G0379; J0290; J0595; J1580; J2795; J3010; J3490

== ENCOUNTER 2021-07-16 17:19 | Outpatient (CLI) | payer BC, OTHER, SELFPAY ==
[2021-07-16 17:56] LABS: Basophils # 0.1 10^3/uL (0.0-0.1); Basophils % 0.7 %; Eosinophils # 0.2 10^3/uL (0.0-0.8); Eosinophils % 2.6 %; Hematocrit 44.9 % (37.0-47.0); Hemoglobin 14.6 g/dL (11.5-15.3); Lymphocytes # 2.5 10^3/uL (0.8-4.8); Mean Corpuscular HGB Conc 32.5 g/dL (30.0-36.0); Mean Corpuscular Hemoglobin 28.6 pg (28.0-34.0); Mean Platelet Volume 9.6 fL (7.4-10.4); Monocytes # 0.4 10^3/uL (0.2-0.9); Monocytes % 6.3 %; Neutrophils # 3.76 10^3/uL (1.8-7.7); Neutrophils % 54.1 %; Nucleated Red Blood Cells % 0 %; Platelet Count 269 10^3/cmm (130-400); Red Cell Distribution Width 13.2 % (12.1-15.1)
[2021-07-16 18:26] LABS: Alanine Aminotransferase 15 U/L (0-33); Albumin Level 4.8 g/dL (3.5-5.2); Alkaline Phosphatase 75 IU/L (35-105); Anion Gap 17.2 (5-19); Aspartate Amino Transferase 14 U/L (0-32); Blood Urea Nitrogen 12 mg/dL (6-20); Calcium 8.7 mg/dL (8.5-10.5); Carbon Dioxide 25 mmol/L (22-29); Chloride 103 mmol/L (98-107); Globulin 2.5 g/dL (1.3-4.6); Glomerular Filtration Rate 87.4 mL/min (90-130); Glucose 114 mg/dL (65-115); Osmolality Calculated 293 mOsm/kg (285-295); Potassium 4.2 mmol/L (3.5-5.1); Sodium 141 mmol/L (136-145); Total Bilirubin 0.2 mg/dL (0.15-1.2); Total Protein 7.3 g/dL (6.6-8.7)
[2021-07-16 22:28] LABS: Iron 26 ug/dL (37-145)
[2021-07-16 22:44] LABS: Folate Level 13.9 ng/mL (4.8-37.3)
[2021-07-16 22:45] LABS: Vitamin B12 516 pg/mL (232-1245)
[2021-07-21 19:52] LABS: Zinc Level, Serum or Plasma 48 mcg/dL (60-130)
== END 2021-07-16 17:20 | disposition home or self-care (01) ==
PROVIDERS: PCP Family Medicine; Visit Provider Physician Assistant
DX: L30.9 Dermatitis, unspecified (principal); L70.0 Acne vulgaris
CPT/HCPCS: 80053; 82607; 82746; 83540; 84630; 85025

== ENCOUNTER → 2021-09-25 10:05 | Outpatient (BNVA) | payer BC, OTHER, SELFPAY | PROVIDERS: PCP Family Medicine; Visit Provider Internal Medicine Rheumatology | DX: M19.90 Unspecified osteoarthritis, unspecified site (principal); Z79.899 Other long term (current) drug therapy; Z11.59 Encounter for screening for other viral diseases; L30.4 Erythema intertrigo | CPT/HCPCS: 36415; 82306; 86200; 86480; 86704; 86803; 87340 ==

== ENCOUNTER 2022-07-08 15:42 | Outpatient (CLI) | payer BC, SELFPAY ==
--- NOTE | 2022-07-08 | US_ITS ---
WS: [id number] TRANSABDOMINAL PELVIC AND TRANSVAGINAL PELVIC ULTRASOUND HISTORY: MENORRHAGIA COMPARISON: None available. Uterus: 7.6 cm x 5.0 cm x 3.6 cm. Normal size anteverted uterus. On transvaginal imaging the uterus b ecomes retroverted. Endometrium: 1.1 cm. Homogeneous normal endometrium. No increased vascularity or mass. Right ovary: 3.9 cm x 2.4 cm x 2.2 cm. Normal size ovary with normal vascularity. No mass. Left ovary: 2.7 cm x 2.4 cm x 1.8 cm. Normal size ovary with normal vascularity. No mass. Free fluid: Physiologic free fluid. US/US pelv w/transvag [id number] IMPRESSION: 1. Normal pelvic ultrasound. 2. Normal endometrium.
== END 2022-07-08 15:43 | disposition home or self-care (01) ==
LOC: RAD 15:42
PROVIDERS: PCP Nurse Practitioner Family; Visit Provider Nurse Practitioner Family
DX: N92.0 Excessive and frequent menstruation with regular cycle (principal)
CPT/HCPCS: 76830; 76856

== ENCOUNTER 2022-09-24 12:11 | Outpatient (CLI) | payer BC, SELFPAY | END 2022-09-24 12:12 | disposition home or self-care (01) | LOC: LAB 12:13 | PROVIDERS: PCP Nurse Practitioner Family; Visit Provider Nurse Practitioner | DX: Z01.89 Encounter for other specified special examinations (principal) | CPT/HCPCS: 84702 ==

== ENCOUNTER 2023-05-02 11:20 | Outpatient (CLI) | payer BC, SELFPAY ==
[2023-05-02 11:20] VITALS: BMI 33.0
[2023-05-02 11:36] VITALS: BP 126/80; PULSE 122
[2023-05-02 11:52] VITALS: BP 121/67; PULSE 86
[2023-05-02 11:59] VITALS: RESP 16
[2023-05-02 12:08] VITALS: RESP 16
== END 2023-05-02 12:09 | disposition home or self-care (01) ==
LOC: OPOB 11:23 → OBGYN 11:24
PROVIDERS: PCP Nurse Practitioner Family; Visit Provider Obstetrics & Gynecology
DX: O26.899 Other specified pregnancy related conditions, unspecified trimester (principal); Z3A.00 Weeks of gestation of pregnancy not specified; N89.8 Other specified noninflammatory disorders of vagina
CPT/HCPCS: 59025; 83986; 99211

== ENCOUNTER 2025-05-02 09:46 | Emergency (ER) | payer BC, SELFPAY ==
[2025-05-02] VITALS (8 sets, daily range): BP systolic 118–146; BP diastolic 75–88; PULSE 79–104; RESP 16–18; TEMP 36.8; O2SAT 95–100; BMI 29.6
--- NOTE | 2025-05-02 09:58 | W.ED.ABDPA2 ---
HPI - Abdominal Pain General: Chief Complaint: Abdominal Pain Stated Complaint: abdominal pain Time Seen by Provider: 05/02/25 09:48 History of Present Illness: 29-year-old female with a history of inflammatory arthritis, depression and anxiety who presents to the emergency room with abdominal pain. She is diffusely tender. She has had some nausea and vomiting. This started overnight. She is in quite a bit of pain she says. Very tender to palpation diffusely. Cannot find a focal area of pain. Related Data Home Medications ?Medication ?Instructions ?Recorded ?Confirmed sertraline 100 mg tablet 100 mg PO DAILY 09/25/21 05/02/25 sulfasalazine 500 mg tablet 500 mg PO BID 05/02/25 05/02/25 Previous Rx's ?Medication ?Instructions ?Recorded buspirone 10 mg tablet See Rx Instructions .Route 08/16/24 .COMPLEX #270 tabs ondansetron 8 mg disintegrating 8 mg PO Q6H #14 tabs 05/02/25 tablet tramadol 50 mg tablet 50 mg PO Q8H PRN pain #10 tabs 05/02/25 Allergies Allergy/AdvReac Type Severity Reaction Status Date / Time latex Allergy ALGY-Rash Verified 05/02/25 09:48 Review of Systems Narrative: Constitutional symptoms: Negative except as documented in HPI. Skin symptoms: Negative except as documented in HPI. Eye symptoms: Negative except as documented in HPI. ENMT symptoms: Negative except as documented in HPI. Respiratory symptoms: Negative except as documented in HPI. Cardiovascular symptoms: Negative except as documented in HPI. Gastrointestinal symptoms: Negative except as documented in HPI. Genitourinary symptoms: Negative except as documented in HPI. Musculoskeletal symptoms: Negative except as documented in HPI. Neurologic symptoms: Negative except as documented in HPI. Psychiatric symptoms: Negative except as documented in HPI. Endocrine symptoms: Negative except as documented in HPI. 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 Immunization counseling High risk medication use Intertrigo Inflammatory arthritis No pertinent past medical history Surgical History H/O right knee surgery No history of previous surgery Family History Mother Behcet's disease Rheumatoid arthritis Lung disease Other Diabetes Hypertension Denies family history of CAD (coronary artery disease) Chronic kidney disease (CKD) Family history of premature coronary artery disease Stroke Social History Smoking and tobacco/nicotine status: never used tobacco/nicotine Alcohol intake: current Alcohol intake frequency: few times a week Physical Exam Narrative: EXAM NARRATIVE: General: Alert, no acute distress. Skin: Warm, dry. Head: Normocephalic, atraumatic. Neck: Supple, trachea midline. Eye: Extraocular movements are intact. Ears, nose, mouth and throat: mucosa moist. Cardiovascular: Regular, Normal peripheral perfusion. Respiratory: Lungs are clear to auscultation, respirations are non-labored, breath sounds are equal, Symmetrical chest wall expansion. Gastrointestinal: Soft, diffuse tenderness, some guarding, Non distended Musculoskeletal: Normal ROM, no deformity. Neurological: Alert and oriented, No focal neurological deficit observed. Psychiatric: Cooperative, appropriate mood & affect. Course Vital Signs: Vital signs: Vital Signs Temperature 98.2 F 05/02/25 09:50 Pulse Rate 81 05/02/25 15:30 Respiratory Rate 18 05/02/25 15:20 Blood Pressure 123/76 05/02/25 15:30 Pulse Oximetry 98 05/02/25 15:30 Oxygen Delivery Me thod Room Air 05/02/25 15:20 MDM - Abdominal Pain Medical Decision Making Medical decision making Patient's reason for coming to the emergency room: Nausea and vomiting Social determinants: Patient is employed at [employer]. I reviewed the patient's medical record. Patient follows with rheumatology. Last visit there was in November. I reviewed the patient's current home meds Patient takes sulfasalazine for arthritis. Buspirone and sertraline. Alternate historians: None Differential diagnosis for this patient with abdominal pain, nausea and vomiting including but not limited to and based on the above HPI, review of systems and physical exam: Urinary tract infection. Appendicitis. Cholecystitis. Colitis. small bowel obstruction. crohn's flare. pancreatitis. gastritis. peptic ulcer. cyclic vomiting. Viral illness. Influenza. COVID. Orders placed to evaluate differential diagnosis based on the above differential, HPI and physical exam Lab Review: Laboratory results were reviewed and interpreted by myself the emergency room physician. No leukocytosis. No anemia. No renal failure. Urinalysis is negative for infection. hCG is negative. Liver enzymes are negative. CT of the abdomen and pelvis: Mobile cecum but no acute process there. Reverted and retroflexed uterus. Has some follicles on her ovaries. Kidneys look normal. This was reviewed and interpreted by myself the emergency room physician. I also reviewed the radiology report. I discussed the findings of this with the radiologist on-call at length. He also had the other on-call radiologist look at the films. They both feel like this is likely a anatomic variant. Ultrasound pelvis: This shows nothing new that was not seen on CT scan. Physiologic thickened endometrium. Ovaries are normal. There is a small right ovarian cyst. This was reviewed and interpreted by myself the emergency room physician. I also reviewed the radiology report. Reexamination: Patient remained stable. No increased work of breathing. No altered mental status. No focal motor deficits. I spoke at length multiple times with the patient about the findings. She and family have been reading the results and are quite concerned. I tried to stress that I found nothing life-threatening, nothing that needs surgical intervention and it is unclear what exactly caused her pain. The pain is better now and we will treat it further and if she worsens she can return to the emergency room. I have done a CT, and ultrasound and all relevant lab work. Assessment and plan: Abdominal pain ?Zofran and Dilaudid IV in the emergency room. Pain improved. - Discharged home - Discussed plan with patient. Answered any questions. - Evaluation and treatment of this problem were appropriate in the emergency setting. Lab Data 05/02/25 09:59 05/02/25 09:59 Labs/Radiology: Radiology Impressions Abdomen/Pelvis CT 05/02/25 10:12 IMPRESSION: 1. Mobile cecum with cecum in the mid abdomen and LEFT abdomen with fluid although no wall thickening. Small bowel enhancement with a few air-fluid levels. Recommend correlation for small bowel enteritis or ileocolitis. If symptoms progress recommend repeat CT abdomen pelvis 2. Retroverted and retroflexed uterus with small uterine fibroids. 3. Multi follicular ovaries bilaterally. Small amount of free fluid in the pelvis. RIGHT ovarian cyst measuring 2.0 cm. 4. Normal bilateral renal parenchyma enhancement. No hydronephrosis. 5. Fatty liver. Mild hepatomegaly. 6. No other acute findings. Notified Kathryn Barahona MD at 05/02/2025 11:28 Pelvic/Transvag US 05/02/25 13:03 IMPRESSION: 1. Thickened endometrium measuring 14 mm physiologic in a patient this age. 2. Bilateral ovaries visualized with normal vascularity. 3. Small RIGHT ovarian cyst measuring 1.5 x 1.2 cm 4. Nabothian cysts in the cervix. Laboratory Results WBC 6.47 10^3/uL (3.29-11.43) 05/02/25 09:59 RBC 5.29 10^6/uL (3.85-5.65) 05/02/25 09:59 Hgb 15.60 g/dL (11.27-16.99) 05/02/25 09:59 Hct 46.4 % (36-47) 05/02/25 09:59 MCV 87.7 fl (85-98) 05/02/25 09:59 MCH 29.5 pg (27-33) 05/02/25 09:59 MCHC 33.6 g/dL (30-55) 05/02/25 09:59 RDW 12.7 % (12.1-15.1) 05/02/25 09:59 Plt Count 226 10^3/cmm (157-399) 05/02/25 09:59 MPV 9.6 fL (7.4-10.4) 05/02/25 09:59 Neut % (Auto) 54.5 % 05/02/25 09:59 Lymph % (Auto) 35.7 % 05/02/25 09:59 [place] % (Auto) 6.0 % 05/02/25 09:59 Eos % (Auto) 2.9 % 05/02/25 09:59 Baso % (Auto) 0.6 % 05/02/25 09:59 Neut # (Auto) 3.52 10^3/uL (1.8-7.7) 05/02/25 09:59 Lymph # (Auto) 2.3 10^3/uL (0.8-4.8) 05/02/25 09:59 [place] # (Auto) 0.4 10^3/uL (0.2-0.9) 05/02/25 09:59 Eos # (Auto) 0.2 10^3/uL (0.0-0.8) 05/02/25 09:59 Baso # (Auto) 0.0 10^3/uL (0.0-0.1) 05/02/25 09:59 Nucleated RBC % (auto) 0 % 05/02/25 09:59 Nucleated RBCs # 0.0 /100WBC 05/02/25 09:59 Sodium 141 mmol/L (136-145) 05/02/25 09:59 Potassium 3.9 mmol/L (3.5-5.1) 05/02/25 09:59 Chloride 105 mmol/L (98-107) 05/02/25 09:59 Carbon Dioxide 23 mmol/L (22-29) 05/02/25 09:59 Anion Gap 16.9 (5-19) 05/02/25 09:59 BUN 10 mg/dL (6-20) 05/02/25 09:59 Creatinine 0.7 mg/dL (0.5-0.9) 05/02/25 09:59 GFR Calculation 98.9 mL/min (90-130) 05/02/25 09:59 Glucose 96 mg/dL (65-115) 05/02/25 09:59 Calculated Osmolality 291 mOsm/kg (285-295) 05/02/25 09:59 Lactic Acid 0.8 mmol/L (0.5-2.2) 05/02/25 10:55 Calcium 9.1 mg/dL (8.5-10.5) 05/02/25 09:59 Total Bilirubin 0.3 mg/dL (0.15-1.2) 05/02/25 09:59 AST 19 U/L (0-32) 05/02/25 09:59 ALT 16 U/L (0-33) 05/02/25 09:59 Alkaline Phosphatase 62 U/L (35-105) 05/02/25 09:59 C-Reactive Protein 3.0 mg/L (0.0-4.9) 05/02/25 09:59 Total Protein 8.0 g/dL (6.6-8.7) 05/02/25 09:59 Albumin 4.7 g/dL (3.5-5.2) 05/02/25 09:59 Globulin 3.3 g/dL (1.3-4.6) 05/02/25 09:59 Lipase 40 U/L (13-60) 05/02/25 09:59 HCG, Qual Negative (Negative) 05/02/25 09:59 Urine Color Dark yellow (Yellow) A 05/02/25 10:04 Urine Appearance Clear (CLEAR) 05/02/25 10:04 Urine pH 6.5 (5-7) 05/02/25 10:04 Ur Specific [place] 1.026 (1.005-1.030) 05/02/25 10:04 Urine Protein Negative (Negative) 05/02/25 10:04 Urine Glucose (UA) Negative (Normal) 05/02/25 10:04 Urine Ketones Trace (Negative) 05/02/25 10:04 Urine Blood Negative (Negative) 05/02/25 10:04 Urine Nitrate Negative (Negative) 05/02/25 10:04 Urine Bilirubin Negative (Negative) 05/02/25 10:04 Urine Urobilinogen 0.2 mg/dL (Negative) 05/02/25 10:04 Ur Leukocyte Esterase Negative (Negative) 05/02/25 10:04 Urine RBC 0-2 /hpf (0-2) 05/02/25 10:04 Urine WBC 0-5 /hpf (0-5) 05/02/25 10:04 Ur Squamous Epith Cells 6-10 /hpf (0-5) 05/02/25 10:04 Amorphous Sediment Not Reportable 05/02/25 10:04 Urine Bacteria 1+ /hpf (NONE) H 05/02/25 10:04 Hyaline Casts 0-4 /lpf H 05/02/25 10:04 All radiology interpretation(s) finalized by discharge Discharge Plan Discharge Patient Disposition: Home Clinical Impression: Gastroenteritis Condition: Stable Prescriptions: New tramadol 50 mg tablet 50 mg PO Q8H PRN (Reason: pain) Qty: 10 0RF ondansetron 8 mg tablet,disintegrating 8 mg PO Q6H Qty: 14 0RF Rx Instructions: Take 1/2-1 tab every 6 hours as needed for nausea and vomiting No Action sertraline 100 mg tablet 100 mg PO DAILY buspirone 10 mg tablet See Rx Instructions .ROUTE .COMPLEX Qty: 270 2RF Dose Instruction: TAKE 1 TABLET BY MOUTH THREE TIMES A DAY Rx Instructions: TAKE 1 TABLET BY MOUTH THREE TIMES A DAY sulfasalazine 500 mg tablet 500 mg PO BID Discharge Orders: Discharge ED (Routine); Ordered 05/02/25 Ordered By: Tao Ames Referrals: Carol House, [employer] [Primary Care Provider, Unknown] Discharge Diet: Usual diet Discharge Activity: Increase activity as tolerated Patient Instructions: Abdominal Pain (ED), Opioid Safety, Pain Management, Patient Portal & Delfina Instructions Activity Restrictions/Additional Instructions: Thank you for choosing [facility] for your healthcare needs today. You have been screened and evaluated and felt safe for discharge. Health conditions do change or evolve sometimes and as such it is important that you follow up with your Primary Doctor to be re checked, 3-5 days is a general good time frame for follow up. 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
[2025-05-02] MEDS: HYDROmorphone 0.5 MG/0.5 ML INJ 1 MG IVP (10:08)
[2025-05-02] MEDS: ondansetron 2 mg/ML SDV 2 mL 4 MG IVP (10:08)
[2025-05-02 10:09] LABS: Hematocrit 46.4 % (36-47); Hemoglobin 15.60 g/dL (11.27-16.99); Mean Corpuscular HGB Conc 33.6 g/dL (30-55); Mean Corpuscular Hemoglobin 29.5 pg (27-33); Mean Corpuscular Volume 87.7 fl (85-98); Nucleated Red Blood Cells % 0 %; Platelet Count 226 10^3/cmm (157-399); Red Blood Count 5.29 10^6/uL (3.85-5.65); White Blood Count 6.47 10^3/uL (3.29-11.43)
--- NOTE | 2025-05-02 10:12 | CT_ITS ---
WS: [id number] CT ABDOMEN PELVIS TECHNIQUE: Contrast-enhanced CT of the abdomen and pelvis with coronal and sagittal reformatted images. CLINICAL INFORMATION: Abdominal pain COMPARISON: None. DLP: 780.[address] scans at [facility] use at least one of these dose optimization techniques: automated exposure control; mA and/or kV adjustment per patient size (includes targeted exams where dose is matched to clinical indication); or iterative reconstruction. FINDINGS: Enhancing loops of small bowel in the midabdomen and distal small bowel with a few air-fluid levels. Air-fluid level in the cecum although no significant wall thickening in the colon. Mobile cecum in the midabdomen and LEFT mid abdomen. No evidence of high-grade small or large bowel obstruction. Consider small bowel enteritis or distal ileal colitis. Remainder of the colon is decompressed. Retroverted and retroflexed uterus with suspected small submucosal fibroids. This could be followed up with ultrasound on an elective basis. Endometrial thickening with fluid in the cervix likely physiologic. Multi follicular ovaries bilaterally with a small RIGHT ovarian cyst measuring 2.0 cm. Small moderate free fluid in the pelvis. Fatty liver. Mild hepatomegaly. Normal portal vein and splenic vein. Normal GE junction. Normal spleen. Lung bases are well aerated. Adrenal glands are normal. Normal pancreas. Normal caliber abdominal aorta the aorta. Tiny fat-containing umbilical hernia. Appendix is nonvisualized. Mobile cecum in the mid pelvis. CT/CT abdomen pelvis w con* [id number] IMPRESSION: 1. Mobile cecum with cecum in the mid abdomen and LEFT abdomen with fluid alth ough no wall thickening. Small bowel enhancement with a few air-fluid levels. R ecommend correlation for small bowel enteritis or ileocolitis. If symptoms prog ress recommend repeat CT abdomen pelvis 2. Retroverted and retroflexed uterus with small uterine fibroids. 3. Multi follicular ovaries bilaterally. Small amount of free fluid in the pel vis. RIGHT ovarian cyst measuring 2.0 cm. 4. Normal bilateral renal parenchyma enhancement. No hydronephrosis. 5. Fatty liver. Mild hepatomegaly. 6. No other acute findings. Notified Kathryn Barahona MD at 05/02/2025 11:28
[2025-05-02 10:21] LABS: HCG, Serum Qual Negative (Negative)
[2025-05-02 10:24] LABS: Alanine Aminotransferase 16 U/L (0-33); Albumin Level 4.7 g/dL (3.5-5.2); Alkaline Phosphatase 62 U/L (35-105); Anion Gap 16.9 (5-19); Aspartate Amino Transferase 19 U/L (0-32); Blood Urea Nitrogen 10 mg/dL (6-20); Calcium 9.1 mg/dL (8.5-10.5); Carbon Dioxide 23 mmol/L (22-29); Chloride 105 mmol/L (98-107); Globulin 3.3 g/dL (1.3-4.6); Glucose 96 mg/dL (65-115); Lipase 40 U/L (13-60); Osmolality Calculated 291 mOsm/kg (285-295); Potassium 3.9 mmol/L (3.5-5.1); Sodium 141 mmol/L (136-145); Total Protein 8.0 g/dL (6.6-8.7)
--- OUTSIDE RECORDS SUMMARY | 2025-05-02 10:29 | XMS_ITS | Data Portability ---
Author Organization [facility] Address [address] [place] [address] Assessment No assessment recorded. Plan of Treatment Reminders Order Date Submit Date Provider Last Modified By Organization Details Last Modified Time Details Appointments None recorded. Lab None recorded. Referral None recorded. Procedures None recorded. Surgeries None recorded. Imaging None recorded. Medication Orders Ozempic 0.25 mg or 0.5 mg (2 mg/1.5 mL) subcutaneou s pen injector 2022 023 [place], [place], [address] [place], [address], 15:31:38 hydroxyzine HCl 25 mg tablet 2022 [address]23 [email or web address] [id number], [address] [facility] [address], [place], [address], 15:42:46 Patient TargetsNo targets recorded. Patient Instructions Encounter Date Encounter Id Patient Instructions Last Modified By Organization Details Last Modified Time 07/08/2022 [id number] heart-healthy diet: care instructions Not available 07/08/2022 16:15:39 walking for exercise: care instructions Not available 07/08/2022 16:15:39 Reason for Referral None Reported. Medical Equipment None Reported. Medications Name Sig Start Date Stop Date Status Note LastModified by Organization Details LastModified Time amoxicillin 500 mg capsule TAKE ONE CAPSULE BY MOUTH ONCE TWICE DAILY WITH FOOD. 07/08 completed Not Available Not Available Not Available prednisone 10 mg tablet TAKE 2-3 TABLETS BY MOUTH DAILY FOR 5-7 DAYS NEEDED FOR JOINT PAIN FLARE 07/08 completed Not Available Not Available Not Available sulfasalazi ne 500 mg tablet TAKE 2 TABLETS BY MOUTH AM AND 1 TAB AT BEDTIME FOR 1WK, THEN STAY ON 2 TABS TWICE DAILY WITH FOOD active Not Available Not Available No t Available sertraline 100 mg tablet TAKE 1 TABLET BY MOUTH EVERY DAY active Not Available Not Available No t Available buspirone 10 mg tablet TAKE 1 TABLET BY MOUTH THREE TIMES A DAY active Not Available Not Available No t Available hydroxyzine HCl 25 mg tablet TAKE 1 TABLET BY MOUTH EVERYDAY AT BEDTIME; NEEDS APPT 2022 active Not Available Not Available Not Avai lable betamethaso ne dipropionat e 0.05 % lotion APPLY 5-6 DROPS TO AFFECTED AREAS ON SCALP NIGHTLY NEEDED. 07/08 completed Not Available Not Available Not Available ciclopirox 0.77 % topical cream APPLY TO AFFECTED AREAS ON BREASTS AND UPPER ABDOMEN AREA ONCE DAILY. active Not Available Not Available No t Available Ozempic 0.25 mg or 0.5 mg (2 mg/1.5 mL) subcutaneou s pen injector INJECT 0.25 MG SUB-Q WEEKLY FOR 4 WEEKS, THEN INCREASE TO 0.5 MG WEEKLY active Not Available Not Available No t Available Rybelsus 3 mg tablet TAKE 1 TABLET BY MOUTH ONCE DAILY FOR 30 DAYS 07/08 completed Not Available Not Available Not Available Mounjaro 5 mg/0.5 mL subcutaneou s pen injector INJECT 5 MG SUBCUTANE OUSLY ONCE WEEKLY FOR FOUR WEEKS. active Not Available Not Available No t Available Mounjaro 2.5 mg/0.5 mL subcutaneou s pen injector INJECT 2.5 MG SUBCUTANE OUSLY ONCE WEEKLY FOR FOUR WEEKS. active Not Available Not Available No t Available Vitals Date Recorded Body weight Body temperature Body mass index (BMI) Body height Respiratory rate Oxygen saturation Heart rate Systolic And Diastolic Provider Name and Address Organization Details Last Updated DateTime 3 95159.6 8 g 99.6 [degF] 29.6 kg/m2 170.18 cm 18 /min 98 % 106 /min 124/74 mm[Hg] Afsaneh [facility] 15:00:51 Social History Question Answer Notes LastModified by Organizat ion Details LastModified Time Tobacco Smoking Status Never Smoker MUR[facility] 07/08/2022 15:13:47 Do You Have An Advance Directive? No Information not available 07/08/2022 Do You Wear A Helmet When Biking? No Information not available 07/08/2022 Are You Blind Or Do You Have Difficulty Seeing? No Information not available 07/08/2022 Is Blood Transfusion Acceptable In An Emergency? No Information not available 07/08/2022 What Is Your Level Of Caffeine Consumption? Heavy Information not available 07/08/2022 In The 14 Days Before Symptom Onset, Have You Had Close Contact With A Laboratory-confir med COVID-19 While That Case Was Ill? No Information not available 07/08/2022 In The 14 Days Before Symptom Onset, Have You Had Close Contact With A Person Who Is Under Investigation For COVID-19 While That Person Was Ill? No Information not available 07/08/2022 Have You Been To An Area Known To Be High Risk For COVID-19? No Information not available 07/08/2022 Are You Deaf Or Do You Have Serious Difficulty Hearing? No Information not available 07/08/2022 What Type Of Diet Are You Following? REGULAR Information not available 07/08/2022 Have You Processed Blood Or Body Fluids From An Ebola Virus Disease Patient Without Appropriate PPE? No Information not available 07/08/2022 What Is The Highest Grade Or Level Of School You Have Completed Or The Highest Degree You Have Received? [id number] Information not available 07/08/2022 In The Past 6 Months Have You Fallen No Information not available 07/08/2022 Have You Ever Been Tested For Hepatitis C No Information not available 07/08/2022 Have You Had A Blood Transfusion Before 1991? No Information not available 07/08/2022 Have You Had Senior Living Dialysis? No Information not available 07/08/2022 Have You Ever Used Injectable Drugs, Even Once? No Information no t available 07/08/2022 Do You Have Tattoos Or Body Piercings? Yes Information not available 07/08/2022 Have You Had Close Contact With An Individual With Hepatitis C? No Information not available 07/08/2022 Have You Ever Had Sex For Drugs Or Money? No Information not available 07/08/2022 Have You Ever Had Unprotected Sex? Yes Information not available 07/08/2022 Have You Been Incarcerated For Longer Than 6 Months? No Information not available 07/08/2022 Have You Tested Positive For HIV? No Information no t available 07/08/2022 Do You Have A History Of Fist Fighting Or Combat Experience? No Information not available 07/08/2022 Sexual Orientation Straight Or Heterosexual Information not available 07/08/2022 Gender Identity Female Informati on not available 07/08/2022 What Was The Date Of Your Most Recent Tobacco Screening? 07/08/2022 Information not available 07/08/2022 How Many Children Do You Have? 1 Information not available 07/08/2022 Do You Use Protection During Sex? No Information not available 07/08/2022 What Is Your Relationship Status? Information not available 07/08/2022 Do You Use Your Seat Belt Or Car Seat Routinely? Yes Information not available 07/08/2022 Are You Sexually Active? Yes Information not available 07/08/2022 Do You Have Difficulty Walking Or Climbing Stairs? No Information not available 07/08/2022 Sex: Female Functional Status Question Answer Note LastModified by Organizat ion Details LastModified Time Do you use any illicit or recreational drugs? No Information not available 07/08/2022 Do you or have you ever used any other forms of tobacco or nicotine? No Information not available 07/08/2022 What is your level of alcohol consumption? Occasional Information not available 07/08/2022 Are you currently employed? Yes Information not available 07/08/2022 Do you have transportation difficulties? No Information not available 07/08/2022 Are you able to walk independently without assistance or assistive devices? YESWOREST Information not available 07/08/2022 Do you have difficulty doing errands alone? No Information not available 07/08/2022 Are you able to care for yourself independently? 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 No Information not available 07/08/2022 What is your exercise level? Occasional Information not available 07/08/2022 Mental Status Question Answer Note LastModified by Organizat ion Details LastModified Time Do you feel stressed (tense, restless, nervous, or anxious, or unable to sleep at night)? [id number] Information not available 07/08/2022 Do you have difficulty concentrating, remembering or making decisions? No Information no t available 07/08/2022 Family History Nothing Reported. Medical History Condition Response Allergies/Hayfever Y Anxiety Disorder Y Muscle, Joint, or Bone Problems Y Arthritis Y Constipation Y Headaches Y Chicken Pox Y Gynecological History Statement/Question Response Flow Moderate Frequency of Cycle (Q days) 28 Date of LMP 06/14/2022 Sexually Active? Y STIs/STDs N Age at Menarche 14 Current Control Method None Obstetrics History GPAL:G 0 P 0 0 0 0 Immunizations Vaccine Type Date Status Note Provider Nam e and Address Organization Details Recorded Time IPV 12/07/2000 completed Afsaneh Counts [facility] 07/08/2022 15:00:58 MMR 12/07/2000 completed Afsaneh Counts [facility] 07/08/2022 15:00:58 COVID-19, mRNA, LNP-S, PF, 30 mcg/0.3 mL dose 12/28/2020 completed Afsaneh Counts [facility] 07/08/2022 15:00:58 Hep B, unspecified formulation 1995 completed Afsaneh Counts [facility] 07/08/2022 15:00:58 Hep B, unspecified formulation 02/15/1996 completed Afsaneh Counts [facility] 07/08/2022 15:00:58 OPV, trivalent 02/15/1996 completed Afsaneh Counts null, [place] [facility] 07/08/2022 15:00:58 DTP-Hib 02/15/1996 completed Afsaneh Counts null, [facility] [facility] 07/08/2022 15:00:58 DTaP 12/07/2000 completed Afsaneh Counts null, [facility] 07/08/2022 15:00:58 Past Encounters Encounter ID Performer Location Encounter Start Date Encounter Closed Date Diagnosis/Indication Diagnosis SNOMED-CT Code Diagnosis ICD10 Code Diagnosis IMO Codes Diagnosis Note [id number] JACQUELINE MICHAEL DO [facility] [address] [place] [address] 07/08/2022 14:39:42 07/08/2022 15:26:14 Body mass index 25-29 - overweight 504543539 Z68.29 Will start Ozempic. Counseled patient on proper medication administra tion and side effects. Advised to stop the medication if side effects occur and notify provider. Discussed the importance of healthy lifestyle changes and beginning a physical exercise regimen while taking the medication for jail success. Questions encouraged and answered, verbalized understand ing. 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 She will also continue the buspirone 10 mg and sertraline 100 mg daily. Health Concerns Section Related Observation LastModified by Organization Detai ls LastModified Time None Recorded Concern Status LastModified by Organization Details LastModified Time None Recorded Advance Directives Directive N: Payers Insurance Date Sequence Insurance Name Policy Number Policy Bryson Covered Member ID Bryson Member ID Guarantor Name 09/30/2022 1 [id number] [id number] Analia Alejandro [id number] Analia Alejandro Notes Date Note Type Note Provider Name and Address Organization Details Recorded Time 07/08/2022 text/html Patient is here to establish. She would like to discuss weight loss. She states she was previously on mounjaro and now that it is unavailable she was switched to rybelsus. She stopped the rybelsus two weeks ago and she is interested in starting the ozempic injection. The rybelsus not working well for her. She states she has been struggling to lose weight even after dieting and going to the gym frequently. She has anxiety and depression. She is currently on the sertraline 100 mg daily. She states she is doing okay with her medication but has had some increased stress the past two weeks. She has trouble going to sleeping at night. She reports she takes sulfasalazine for an undiagnosed autoimmune disease that was causing joint pain and rashes. She states that medication works well for her and follows with senior java programmer analyst once per year. Chrissy Ambrose NP [address] [place] [address], [id number], [facility] 07/08/2022 15:46:58 OBGyn Episode No OBEpisode recorded.
--- OUTSIDE RECORDS SUMMARY | 2025-05-02 10:29 | XMS_ITS | Data Portability ---
Author Organization MURPHY Cortez [facility], [facility] Address [address] [place] [address] Care Team Providers Care Oracle Etl Developer Name Role Phone LUCILA EPPERSON Primary Care Provider [phone] Assessment Encounter Date Assessment Date Assessment LastModified by Organization Details LastModified Time 08/21/2023 08/21/2023 Patient presented for medication refill. Patient tolerating medication well at current dose without adverse effects. Refilled as below. Discussed plan with patient, who expressed understanding. Follow up as noted below. Not available 08/21/2023 14:20:04 02/19/2024 02/19/2024 Patient has been doing well. She would like to test her alpha-gal again because she really just wants to try to eat a hamburger without throwing up. Will refill her sulfasalazine today. Not available 03/16/2024 17:22:02 08/25/2024 08/25/2024 Patient here for a check-up today. She is tired of only eating chicken and turkey. She has been totally abstaining from any meat or pork products. Overall she reports she is doing well. Not available 08/25/2024 11:10:02 Plan of Treatment Reminders Order Date Submit Date Provider Last Modified By Organization Details Last Modified Time Details Appointments None recorded. Lab CMP, serum or plasma 2024 025 [facility], [address], [address], [place], [address], 03/27/202 5 12:03:06 CBC 2024 025 [facility], [address], [address], [place], [address], 5 11:36:11 thyrotropin , QN, serum or plasma 2024 025 [facility], [address], [address], [place], [address], 5 12:41:48 alpha-gal ige, serum 2024 025 [facility], [address] [place] [address], [address], [place], [address], 5 16:54:17 alpha-gal ige, serum 2023 024 [facility], [address] [place] [address], [address], [place], [address], 4 08:47:26 SARS CoV 2 RNA, QL, nasopharynx 2023 024 [facility] ([facility]), [address] [place] [address], [address], 4 09:44:45 CMP, serum or plasma 2023 024 [facility], [address], [address], [place], [address], 4 15:19:14 alpha-gal ige, serum 2023 024 [facility], [address] [place] [address], [address], [place], [address], 4 14:53:19 HbA1c (hemoglobin A1c), blood 2023 024 [facility] ([facility]), [address] [place] [address], [address], 4 15:23:16 CBC 2023 024 [facility], [address] [place], [place] [address], [address], [place], [address], 4 14:57:17 TSH, serum or plasma 2023 024 [facility] ([facility]), [address] [place] [address], [address], 4 15:13:54 unlisted lab - sureswab(R) adv bacterial vaginosis (bv), tma 2022 023 [email or web address] 1 [facility], [address] [place] [address], [address], [place], [address], 3 17:20:26 unlisted lab - sureswab(R) adv genoveva vaginitis (CV), tma 2022 023 [email or web address] 1 [facility], [address] [place] [address], [address], [place], [address], 3 17:20:27 michelle wet prep [address] ([facility]), [address] [place] [address], [address], 3 17:29:23 urinalysis, complete [address] ([facility]), [address] [place] [address], [address], 3 17:41:15 culture, urine 2022 023 [facility], [address], [address], [place], [address], 3 05:34:10 Referral None recorded. Procedures None recorded. Surgeries None recorded. Imaging None recorded. Medication Orders sulfasalazi ne 500 [address] tablet [address] [facility][id number], [address], [address], [place], [address], 4 12:55:21 sertraline 100 mg tablet 2023 024 [id number], [address], [address], [place], [address], 4 14:20:19 Macrobid 100 mg capsule 2022 024 [id number], [address], [address], [place], [address], 4 13:44:17 Patient TargetsNo targets recorded. Patient Instructions Encounter Date Encounter Id Patient Instructions Last Modified By Organization Details Last Modified Time 08/21/2023 [id number] Call or return for questions or concerns. Not available 09/10/2023 07:31:34 02/19/2024 [id number] Call or return for questions or concerns. Not available 03/16/2024 17:21:47 08/25/2024 [id number] Call or return for questions or concerns. Not available 08/25/2024 11:08:44 Reason for Referral None Reported. Results Created Date Observation Date Name Description Value Unit Range Abnormal Flag Note LastModifiedBy Organization Detail LastModifiedTime 08/21/1908/21/2023 CBC WBC 5.7 x10 4.0-10 .5 Not Available [facility] [address], [place], [address], 08/21/2023 14:43:18 08/21/19 24 08/21/2023 CBC RBC 4.81 x10 3.50-5 .50 Not Available [facility] [address] [facility] 1, [place], [address], 08/21/2023 14:43:18 08/21/19 24 08/21/2023 CBC HGB 12.9 g/dL 12.0-1 6.0 Not Available [facility] [address] [facility] 1, [place], [address], 08/21/2023 14:43:18 08/21/19 24 08/21/2023 CBC HCT 38.0 % 37.0-4 7.0 Not Available [facility] [address] [facility] [address] [facility] 1, [place], [address], 08/21/2023 14:43:18 08/21/19 24 08/21/2023 CBC MCV 79.0 fL 80.0-9 9.9 low Not Available [facility] [address] [facility] 1, [place], [address], 08/21/2023 14:43:18 08/21/19 24 08/21/2023 CBC MCH 26.8 pg 27.0-3 2.0 low Not Available [facility] [address] [facility] 1, [place], [address], 08/21/2023 14:43:18 08/21/19 24 08/21/2023 CBC MCHC 33.9 g/dL 32.0-3 6.0 Not Available [facility] [address] [facility] 1, [place], [address], 08/21/2023 14:43:18 08/21/19 24 08/21/2023 CBC RDW 17.7 % 11.5-1 4.5 high Not Available [facility] [address] [facility] 1, [place], [address], 08/21/2023 14:43:18 08/21/19 24 08/21/2023 CBC plt 226.0 x10 140.0- 451.0 Not Available [facility] [address] [facility] [address], [place], [address], 08/21/2023 14:43:18 08/21/19 24 08/21/2023 CBC lymphocytes % 36.1 % 20.0-5 0.0 Not Available [facility] [address] [facility] [address], [place], [address], 08/21/2023 14:43:18 08/21/19 24 08/21/2023 CBC granulcytes % 52.3 % 30.0-7 0.0 Not Available [facility] [address] [facility] [address], [place], [address], 08/21/2023 14:43:18 08/21/19 24 08/21/2023 CBC monocytes % 6.6 % 2.0-10 .0 Not Available [facility] [address] [facility] [address], [place], [address], 08/21/2023 14:43:18 08/21/19 24 08/21/2023 CBC granulcytes# 3.0 x10 Not Sarah ilable [facility] [address] [facility] [address], [place], [address], 08/21/2023 14:43:18 08/21/19 24 08/21/2023 CBC lymphocytes # 2.1 x10 Not Available [facility] [address] [facility] [address], [place], [address], 08/21/2023 14:43:18 08/21/19 24 08/21/2023 CBC monocytes # 0.4 x10 Not Avai lable [facility] [address], [place], [address], 08/21/2023 14:43:18 08/21/19 24 08/21/2023 CMP (FEMA LE) glucose 135.0 mg/dL 60.0-9 9.0 high Not Available [facility] [address] [facility], [place], [address], 08/21/2023 15:19:14 08/21/19 24 08/21/2023 CMP (FEMA LE) BUN (blood urea nitrogen) 13.0 mg/dL 10.0-2 6.0 Not Available [facility] [address], [place], [address], 08/21/2023 15:19:14 08/21/19 24 08/21/2023 CMP (FEMA LE) creatinine (serum) 0.8 mg/dL 0.4-1. 5 Not Available [facility] [address] [address], [place], [address], 08/21/2023 15:19:14 08/21/19 24 08/21/2023 CMP (FEMA LE) BUN/creatini ne ratio 16.05 ratio Not Available [facility] [address], [place], [address], 08/21/2023 15:19:14 08/21/19 24 08/21/2023 CMP (FEMA LE) eGFR calculated 90.1 Not Available [facility] [address] [address], [place], [address], 08/21/2023 15:19:14 08/21/19 24 08/21/2023 CMP (FEMA LE) total protein 7.7 g/dL 6.0-8. 5 Not Available [facility] [address] [address], [place], [address], 08/21/2023 15:19:14 08/21/19 24 08/21/2023 CMP (FEMA LE) total bilirubin 0.2 mg/dL 0.2-1. 3 Not Available [facility] [address] [facility] [address], [place], [address], 08/21/2023 15:19:14 08/21/19 24 08/21/2023 CMP (FEMA LE) albumin 4.6 g/dL 3.5-5. 5 Not Available [facility] [address] [facility] [address], [place], [address], 08/21/2023 15:19:14 08/21/19 24 08/21/2023 CMP (FEMA LE) globulin 3.[address] [facility] [address], [place], [address], 08/21/2023 15:19:14 08/21/19 24 08/21/2023 CMP (FEMA LE) AST (SGOT) 23.0 U/L 0.0-46 .0 Not Available [facility] [address] [facility] [address], [place], [address], 08/21/2023 15:19:14 08/21/19 24 08/21/2023 CMP (FEMA LE) altv (SGPT) 18.0 U/L 13.0-6 9.0 normal Not Available [facility] [address], [place], [address], 08/21/2023 15:19:14 08/21/19 24 08/21/2023 CMP (FEMA LE) A/G ratio 1.5 ratio Not Available [facility] [address], [place], [address], 08/21/2023 15:19:14 08/21/19 24 08/21/2023 CMP (FEMA LE) ALP phos 80.0 U/L 30.0-1 40.0 normal Not Available [facility] [address] [facility] [address], [place], [address], 08/21/2023 15:19:14 08/21/19 24 08/21/2023 CMP (FEMA LE) calcium 9.2 mg/dL 8.4-10 .5 Not Available [facility] [address] [facility] [address], [place], [address], 08/21/2023 15:19:14 08/21/19 24 08/21/2023 CMP (FEMA LE) sodium 142.0 mmol/ L 136.0- 145.0 Not Available [facility] [address] [facility] [address], [place], [address], 08/21/2023 15:19:14 08/21/19 24 08/21/2023 CMP (FEMA LE) potassium 3.8 mmol/ L 3.5-5. 1 Not Available [facility] [address] [facility] [address], [place], [address], 08/21/2023 15:19:14 08/21/19 24 08/21/2023 CMP (FEMA LE) chloride 106.0 mmol/ L 98.0-1 10.0 normal Not Available [facility] [address] [facility] [address], [place], [address], 08/21/2023 15:19:14 08/21/19 24 08/21/2023 CMP (FEMA LE) C02 27.0 mmol/ L 22.0-3 1.0 Not Available [facility] [address] [facility] [address], [place], [address], 08/21/2023 15:19:14 08/21/19 24 08/21/2023 CMP (FEMA LE) anion gap 9.0 calc Not Available [facility] [address] [facility] [address], [place], [address], 08/21/2023 15:19:14 08/21/19 24 08/21/2023 CMP (FEMA LE) osmolality 295.1 calc Not Available [facility] [address] [address], [place], [address], 08/21/2023 15:19:14 08/24/19 24 08/24/2023 ALPHA GAL PANEL beef (F27) IgE 0.55 kU/L high Not Available [address] [address] [place], [address], 08/24/2023 14:53:18 08/24/19 24 08/24/2023 ALPHA GAL PANEL class 1 Not Available [address], [address], 08/24/2023 14:53:18 08/24/19 24 08/24/2023 ALPHA GAL PANEL gregg (F88) IgE 0.49 kU/L high Not Available [address], [address], 08/24/2023 14:53:18 08/24/19 24 08/24/2023 ALPHA GAL PANEL class 1 Not Available [address], [address], 08/24/2023 14:53:18 08/24/19 24 08/24/2023 ALPHA GAL PANEL pork (F26) IgE 0.42 kU/L high Not Available [address] [place], [address], 08/24/2023 14:53:18 08/24/19 24 08/24/2023 ALPHA GAL PANEL class 1 Not Available [address], [address], 08/24/2023 14:53:18 08/24/19 24 08/24/2023 ALPHA GAL PANEL galactose alpha 1,3 galactose IgE Not Available [address] [place], [address], 08/24/2023 14:53:18 08/24/19 24 08/24/2023 INTER PRETA TION interpretati on Speci fic Level of Aller gen IGE Class kU/L Speci fic IGE Antib christie ----- ----- ---- ----- ----- ----- ---- 0 <0.10 Absen t/Und etect able 0/1 0.10- 0.34 Very Low Level 1 0.35- 0.69 Low Level 2 0.70- 3.49 Moder ate Level 3 3.50- 17.4 High Level 4 17.5- 49.9 Very High Level 5 50-10 0 Very High Level 6 >100 Very High Level The clini lazarus relev ance of aller gen resul ts of 0.10- 0.34 kU/L are undet ermin ed and inten ded for speci alist use. Aller gens denot ed with a inclu de resul ts using one or more stanislaw te speci fic reage nts. In those cases , the test was devel oped and its stanislaw tical perfo rmanc e davie cteri stics have been deter mined by [employer] [facility] ost[facility]ason s. It has not been clear ed or appro cori by the U.S. Food and Drug Admin istra tion. This assay has been valid ated pursu ant to the CLIA regul ation s and is used for clini lazarus purpo ses. NO COLLE CTION DATE RECEI CORI. WE HAVE USED THE DATE THE SPECI MEN WAS RECEI CORI BY THIS LABOR ATORY THE COLLE CTION DATE. IF THIS IS INCOR RECT, PLEAS E CONTA CT CLIEN T SERVI GEOVANNI. PHONE NUMBE R: [phone] Not Available [facility] [address], [address], 08/24/2023 14:53:19 08/25/19 24 08/25/2023 ALPHA GAL PANEL beef (F27) IgE 0.55 kU/L high Not Available [facility] [address], [address], 08/25/2023 18:27:03 08/25/19 24 08/25/2023 ALPHA GAL PANEL class 1 Not Available [address], [address], 08/25/2023 18:27:03 08/25/19 24 08/25/2023 ALPHA GAL PANEL gregg (F88) IgE 0.49 kU/L high Not Available [address], [address], 08/25/2023 18:27:03 08/25/19 24 08/25/2023 ALPHA GAL PANEL class 1 Not Available [address], [address], 08/25/2023 18:27:03 08/25/19 24 08/25/2023 ALPHA GAL PANEL pork (F26) IgE 0.42 kU/L high Not Available [address], [address], 08/25/2023 18:27:03 08/25/19 24 08/25/2023 ALPHA GAL PANEL class 1 Not Available [address], [address], 08/25/2023 18:27:03 08/25/19 24 08/25/2023 ALPHA GAL PANEL galactose alpha 1,3 galactose IgE 1.12 kU/L <0.10 high Resul ts above 0.1 kU/L indic ate an aller gen-s pecif ic IgE sensi tizat ion to galac tose- a-1,3 -gala ctose , and such patie nts are at risk for delay ed aller gic react ions follo wing beef, pork, or gregg consu mptio n. Circu latin g IgE antib odies may remai n undet ectab le despi te a convi ncing clini lazarus histo ry becau se these antib odies may be direc karl colon ds aller gens revea led or alter ed cassy g indus trial proce ssing , cooki ng, or diges tion and there fore do not exist in the origi nal food for which the patie nt is teste d. Somet imes indiv idual s diagn osed with chron ic urtic aria may devel op IgE antib odies direc karl again st human thyro globu keara. Such antib odies may cross -reac t with the bovin e thyro globu keara used in Immun oCAP( R) Aller gen o215, alpha -Gal, leadi ng to a false -posi tive test resul t. A defin itive diagn osis shoul d be based on the evalu ation of both clini lazarus and labor atory findi ngs and not on any singl e diagn ostic metho d. Addit ional infor shira orellana can be found at http: //www .phad ia.co m Not Available [facility] [address] [place], [address], 08/25/2023 18:27:03 10/22/19 23 10/21/2022 urina lysis , compl ete color yellow normal Not Available [facility] ([facility]) [address] [place] [address], [address], 10/21/2022 11:47:39 10/22/19 23 10/21/2022 urina lysis , compl ete clarity clear clear normal Not Available [facility] ([facility]) [address] [place] [address], [address], 10/21/2022 11:47:39 10/22/19 23 10/21/2022 urina lysis , compl ete glucose negati ve negati ve normal Not Available [facility] ([facility]) [address] [place] [address], [address], 10/21/2022 11:47:39 10/22/19 23 10/21/2022 urina lysis , compl ete bilirubin negati ve negati ve normal Not Available [facility] ([facility]) [address] [place], [address], 10/21/2022 11:47:39 10/22/1910/21/2022 urina lysis , compl ete ketones negati ve negati ve normal Not Available [facility] ([facility]) [address] [place], [address], 10/21/2022 11:47:39 10/22/1910/21/2022 urina lysis , compl ete specific gravity 1.020 1.005- 1.025 normal Not Available [facility] ([facility]) [address] [place], [address], 10/21/2022 11:47:39 10/22/1910/21/2022 urina lysis , compl ete pH 7.0 5.0-7. 0 normal Not Available [facility] ([facility]) [address] [place], [address], 10/21/2022 11:47:39 10/22/1910/21/2022 urina lysis , compl ete protein negati ve normal Not Available [facility] ([facility]) [address] [place], [address], 10/21/2022 11:47:39 10/22/1910/21/2022 urina lysis , compl ete uro 0.2 normal Not Available [facility] ([facility]) [address] [place], [address], 10/21/2022 11:47:39 10/22/1910/21/2022 urina lysis , compl ete nitrate negati ve negati ve normal Not Available [facility] ([facility]) [address] [place], [address], 10/21/2022 11:47:39 10/22/1910/21/2022 urina lysis , compl ete blood negati ve negati ve normal Not Available [facility] ([facility]) [address] [place], [address], 10/21/2022 11:47:39 10/22/1910/21/2022 urina lysis , compl ete leukocytes negati ve negati ve normal Not Available [facility] ([facility]) [address] [place], [address], 10/21/2022 11:47:39 10/22/1910/21/2022 urina lysis , compl ete WBC -- 0 Not Available [facility] ([facility]) [address] [place], [address], 10/21/2022 11:47:39 10/22/1910/21/2022 urina lysis , compl ete RBC -- 0 Not Available [facility] ([facility]) [address] [place], [address], 10/21/2022 11:47:39 10/22/1910/21/2022 urina lysis , compl ete epi cells -- 0 Not Available [facility] ([facility]) [address] [place], [address], 10/21/2022 11:47:39 10/22/1910/21/2022 urina lysis , compl ete bacteria -- Not Available [facility] ([facility]) [address] [place], [address], 10/21/2022 11:47:39 10/22/1910/21/2022 urina lysis , compl ete other -- Not Available [facility] ([facility]) [address] [place], [address], 10/21/2022 11:47:39 10/22/1910/21/2022 urina lysis , compl ete Unknown Analyte -- Not Available [facility] ( [facility]) [address] [place], [address], 10/21/2022 11:47:39 10/23/19 23 10/24/2022 CULTU RE, URINE , ROUTI NE culture, urine, routine SEE NOTE abnormal CULTU RE, URINE , ROUTI NE Micro Numbe r: [id number] Test Statu s: Final Speci men Sourc e: Urine , clean catch Speci men Quali ty: Adequ ate Resul t: 10,00 0-49, 000 CFU/m L of Vanco mycin resis tant Enter ococc us faeca lis COMME NT: Addit ional non-p redom inati ng organ ism(s ) isola karl. These organ isms, commo nly found on exter nal and inter nal genit venita, are consi dered colon izers . No furth er testi ng perfo rmed. E.travis calis ----- ----- ----- - INT GENO AMPIC ILLIN S <=2 NITRO FURAN TOIN S <=16 VANCO MYCIN R >=32 S=Fang cepti ble I=Int ermed iate R=Res istan t * = Not Teste d NR = Not Repor karl NN = See Thera py Comme nts Not Available [address] [address] [place], [address], 10/25/2022 00:41:35 11/04/19 23 11/05/2022 CULTU RE, URINE , ROUTI NE culture, urine, routine SEE NOTE CULTU RE, URINE , ROUTI NE Micro Numbe r: [id number] Test Statu s: Final Speci men Sourc e: Urine Speci men Quali ty: Adequ ate Resul t: Mixed genit al dimitry isola karl. These super ficia l bacte hodan are not indic ative of a urina ry tract infec tion. No furth er organ ism ident ifica tion is warra nted on this speci men. If clini fabian indic ated, recol lect clean -catc h, mid-s tream urine and trans sintia immed iatel y to Urine Cultu re Trans port Tube. Not Available [facility] [address] [place], [address], 11/05/2022 05:34:09 11/04/19 23 11/03/2022 michelle wet prep Whiff negati ve Not Available [facility] ([facility]) [address] [place], [address], 11/03/2022 16:12:29 11/04/19 23 11/03/2022 michelle wet prep Epi 8-10 Not Available [facility] ([facility]) [address] [place], [address], 11/03/2022 16:12:29 11/04/19 23 11/03/2022 michelle wet prep WBC 1-2 Not Available [facility] ([facility]) [address] [place], [address], 11/03/2022 16:12:29 11/04/19 23 11/03/2022 michelle wet prep RBC 0 Not Available [facility] ([facility]) [address] [place], [address], 11/03/2022 16:12:29 11/04/19 23 11/03/2022 michelle wet prep Bacteria none Not Available [facility] ([facility]) [address] [place], [address], 11/03/2022 16:12:29 11/04/19 23 11/03/2022 michelle wet prep Fungus none seen Not Available [facility] ([facility]) [address] [place], [address], 11/03/2022 16:12:29 11/04/19 23 11/03/2022 michelle wet prep Clue Cells negati ve Not Available [facility] ([facility]) [address] [place], [address], 11/03/2022 16:12:29 11/04/19 23 11/03/2022 michelle wet prep Other - Not Available [facility] ([facility]) [address] [place], [address], 11/03/2022 16:12:29 11/04/19 23 11/03/2022 urina lysis , compl ete color yellow Not Available [facility] ([facility]) [address] [place], [address], 11/03/2022 16:05:23 11/04/19 23 11/03/2022 urina lysis , compl ete clarity clear clear Not Available [facility] ([facility]) [address] [place], [address], 11/03/2022 16:05:23 11/04/19 23 11/03/2022 urina lysis , compl ete glucose negati ve negati ve Not Available [facility] ([facility]) [address] [place], [address], 11/03/2022 16:05:23 11/04/19 23 11/03/2022 urina lysis , compl ete bilirubin negati ve negati ve Not Available [facility] ([facility]) [address] [place], [address], 11/03/2022 16:05:23 11/04/19 23 11/03/2022 urina lysis , compl ete ketones negati ve negati ve Not Available [facility] ([facility]) [address] [place], [address], 11/03/2022 16:05:23 11/04/19 23 11/03/2022 urina lysis , compl ete specific gravity >=1.03 0 1.005- 1.025 abnormal Not Available [facility] ([facility]) [address] [place], [address], 11/03/2022 16:05:23 11/04/19 23 11/03/2022 urina lysis , compl ete pH 5.0 5.0-7. 0 Not Available [facility] ([facility]) [address] [place], [address], 11/03/2022 16:05:23 11/04/1911/03/2022 urina lysis , compl ete protein negati ve Not Available [facility] ([facility]) [address] [place], [address], 11/03/2022 16:05:23 11/04/19 23 11/03/2022 urina lysis , compl ete uro 0.2 Not Available [facility] ([facility]) [address] [place], [address], 11/03/2022 16:05:23 11/04/19 23 11/03/2022 urina lysis , compl ete nitrate negati ve negati ve Not Available [facility] ([facility]) [address] [place], [address], 11/03/2022 16:05:23 11/04/19 23 11/03/2022 urina lysis , compl ete blood negati ve negati ve Not Available [facility] ([facility]) [address] [place], [address], 11/03/2022 16:05:23 11/04/19 23 11/03/2022 urina lysis , compl ete leukocytes negati ve negati ve Not Available [facility] ([facility]) [address] [place], [address], 11/03/2022 16:05:23 11/04/19 23 11/03/2022 urina lysis , compl ete WBC 1-2 0 abnormal Not Available [facility] ([facility]) [address] [place], [address], 11/03/2022 16:05:23 11/04/19 23 11/03/2022 urina lysis , compl ete RBC 0-1 0 abnormal Not Available [facility] ([facility]) [address] [place], [address], 11/03/2022 16:05:23 11/04/19 23 11/03/2022 urina lysis , compl ete epi cells 5-6 0 abnormal Not Available [facility] ([facility] [facility] [address] [place], [address], 11/03/2022 16:05:23 11/04/19 23 11/03/2022 urina lysis , compl ete bacteria 1+ mucus thread Not Available [facility] ([facility]) [address] [place], [address], 11/03/2022 16:05:23 11/04/19 23 11/03/2022 urina lysis , compl ete other Not Available [facility] ([facility]) [address] [place], [address], 11/03/2022 16:05:23 11/05/19 23 11/05/2022 SURES WAB(R ) ADVAN ALANNA VAGIN ITIS PLUS, TMA sureswab(R) adv bacterial vaginosis (bv), tma NEGATI VE negati ve normal Not Available [facility] [address] , [place], [address], 11/05/2022 10:12:34 11/05/19 23 11/05/2022 SURES WAB(R ) ADVAN ALANNA VAGIN ITIS PLUS, TMA genoveva species DETECT ED not detect ed abnormal Not Available [facility] [address], [address], 11/05/2022 10:12:34 11/05/19 23 11/05/2022 SURES WAB(R ) ADVAN ALANNA VAGIN ITIS PLUS, TMA genoveva glabrata NOT DETECT ED not detect ed normal Rosibel da speci es C. albic ans, C. tropi calis , C. parap maurice is, and/o r C. dubli niens is can be detec karl, but not diffe renti ated, in the Rosibel da spp. resul t. Not Available [address], [address], 11/05/2022 10:12:34 11/05/19 23 11/05/2022 SURES WAB(R ) ADVAN ALANNA VAGIN ITIS PLUS, TMA trichomonas vaginalis (TV), tma NOT DETECT ED not detect ed normal Not Available [facility] [address], [address], 11/05/2022 10:12:34 11/05/19 23 11/05/2022 SURES WAB(R ) ADVAN ALANNA VAGIN ITIS PLUS, TMA chlamydia trachomatis RNA, tma, urogenital NOT DETECT ED not detect ed normal Not Available [facility] [address], [address], 11/05/2022 10:12:34 11/05/19 23 11/05/2022 SURES WAB(R ) ADVAN ALANNA VAGIN ITIS PLUS, TMA neisseria gonorrhoeae RNA, tma, urogenital NOT DETECT ED not detect ed normal For addit ional tommie milner refer to https ://ed ucati on.qu mariusz SI-BONE. Viadeo/f aq/FA Q154 (This link is being provi ded for dominique orellana/ educa mimi l purpo ses only. ) Not Available [facility] [place] [address] [place], [address], 11/05/2022 10:12:34 08/21/19 24 08/21/2023 HbA1c (hemo globi n A1c), blood HbA1c 5.4 Not Available [facility] ([facility]) [address] [place] [address], [address], 08/21/2023 14:12:29 08/21/19 24 08/21/2023 TSH, serum or plasm a TSH 0.80 uIU/m L 0.49-3 .82 Not Available [facility] ([facility]) [address] [place] [address], [address], 08/21/2023 13:54:58 12/24/19 24 12/24/2023 SARS CoV 2 RNA, QL, nasop haryn x COVID negati ve Not Available [facility] ([facility]) [address] [place] [address], [address], 12/24/2023 09:30:22 02/19/20 24 02/27/2024 ALPHA GAL PANEL beef (F27) IgE 0.52 kU/L high Not Available [address] [address] [place], [address], 02/27/2024 08:47:26 02/19/20 24 02/27/2024 ALPHA GAL PANEL class 1 Not Available [facility] [address] [address] [place], [address], 02/27/2024 08:47:26 02/19/20 24 02/27/2024 ALPHA GAL PANEL gregg (F88) IgE 0.42 kU/L high Not Available [facility] [address] [address] [place], [address], 02/27/2024 08:47:26 02/19/20 24 02/27/2024 ALPHA GAL PANEL class 1 Not Available [facility] [id number], [place], [address], 02/27/2024 08:47:26 02/19/2002/27/2024 ALPHA GAL PANEL pork (F26) IgE 0.29 kU/L high Not Available [facility] [address] [place], [address], 02/27/2024 08:47:26 02/19/20 24 02/27/2024 ALPHA GAL PANEL class 0/1 Not Available [facility] [address] [place], [address], 02/27/2024 08:47:26 02/19/2002/27/2024 ALPHA GAL PANEL galactose alpha 1,3 galactose IgE 0.70 kU/L <0.10 high Resul ts above 0.1 kU/L indic ate an aller gen-s pecif ic IgE sensi tizat ion to galac tose- a-1,3 -gala ctose , and such patie nts are at risk for delay ed aller gic react ions follo wing beef, pork, or gregg consu mptio n. Circu latin g IgE antib odies may remai n undet ectab le despi te a convi ncing clini lazarus histo ry becau se these antib odies may be direc karl towar ds aller gens revea led or alter ed durin g indus trial proce ssing , cooki ng, or diges tion and there fore do not exist in the origi nal food for which the patie nt is teste d. Somet imes indiv idual s diagn osed with chron ic urtic aria may devel op IgE antib odies direc karl again st human thyro globu keara. Such antib odies may cross -reac t with the bovin e thyro globu keara used in Immun oCAP( R) Aller gen o215, alpha -Gal, leadi ng to a false -posi tive test resul t. A defin itive diagn osis shoul d be based on the evalu ation of both clini lazarus and labor atory findi ngs and not on any singl e diagn ostic metho d. Addit ional infor shira orellana can be found at http: //www .phad ia.co m Not Available [facility] [address] [place], [address], 02/27/2024 08:47:26 02/19/20 24 02/27/2024 INTER PRETA TION interpretati on Speci fic Level of Aller gen IGE Class kU/L Speci fic IGE Antib christie ----- ----- ---- ----- ----- ----- ---- 0 <0.10 Absen t/Und etect able 0/1 0.10- 0.34 Very Low Level 1 0.35- 0.69 Low Level 2 0.70- 3.49 Moder ate Level 3 3.50- 17.4 High Level 4 17.5- 49.9 Very High Level 5 50-10 0 Very High Level 6 >100 Very High Level The clini lazarus relev ance of aller gen resul ts of 0.10- 0.34 kU/L are undet ermin ed and inten ded for speci alist use. Aller gens denot ed with a inclu de resul ts using one or more stanislaw te speci fic reage nts. In those cases , the test was devel oped and its stanislaw tical perfo rmanc e davie cteri stics have been deter mined by [facility]. It has not been clear ed or appro cori by the U.S. Food and Drug Admin istra tion. This assay has been valid ated pursu ant to the CLIA regul ation s and is used for clini lazarus purpo ses. Not Available [facility] [address], [place], [address], 02/27/2024 08:47:27 08/26/19 25 08/25/2024 CBC WBC 5.8 x10 4.0-10 .5 Not Available [facility] [address] [address], [place], [address], 08/25/2024 11:36:11 08/26/1908/25/2024 CBC RBC 4.90 x10 3.50-5 .50 Not Available [facility] [address] [facility] 1, [place], [address], 08/25/2024 11:36:11 08/26/19 25 08/25/2024 CBC HGB 14.8 g/dL 12.0-1 6.0 Not Available [facility] [address] [facility] [address], [place], [address], 08/25/2024 11:36:11 08/26/1908/25/2024 CBC HCT 44.6 % 37.0-4 7.0 Not Available [facility] [address] [facility] 1, [place], [address], 08/25/2024 11:36:11 08/26/1908/25/2024 CBC MCV 91.1 fL 80.0-9 9.9 Not Available [facility] [address] [facility], [place], [address], 08/25/2024 11:36:11 08/26/1908/25/2024 CBC MCH 30.3 pg 27.0-3 2.0 Not Available [facility] [address] [facility] [address], [place], [address], 08/25/2024 11:36:11 08/26/1908/25/2024 CBC MCHC 33.3 g/dL 32.0-3 6.0 Not Available [facility] [address] [facility] [address], [place], [address], 08/25/2024 11:36:11 08/26/1908/25/2024 CBC RDW 13.2 % 11.5-1 4.5 Not Available [facility] [address] [facility] 1, [place], [address], 08/25/2024 11:36:11 08/26/19 25 08/25/2024 CBC plt 198.3 x10 140.0- 451.0 Not Available [facility] [address] [facility], [place], [address], 08/25/2024 11:36:11 08/26/19 25 08/25/2024 CBC lymphocytes % 40.2 % 20.0-5 0.0 Not Available [facility] [address] [facility] [address], [place], [address], 08/25/2024 11:36:11 08/26/19 25 08/25/2024 CBC granulcytes % 48.8 % 30.0-7 0.0 Not Available [facility] [address] [address], [place], [address], 08/25/2024 11:36:11 08/26/19 25 08/25/2024 CBC monocytes % 7.5 % 2.0-16 .0 Not Available [facility] [address] [address], [place], [address], 08/25/2024 11:36:11 08/26/19 25 08/25/2024 CBC granulcytes# 2.8 x10 Not Sarah ilable [facility] [address] [address], [place], [address], 08/25/2024 11:36:11 08/26/19 25 08/25/2024 CBC lymphocytes # 2.3 x10 Not Available [facility] [address] [address], [place], [address], 08/25/2024 11:36:11 08/26/19 25 08/25/2024 CBC monocytes # 0.4 x10 Not Avai lable [facility] [address] [address], [place], [address], 08/25/2024 11:36:11 08/26/19 25 08/25/2024 CMP (FEMA LE) glucose 108.0 mg/dL 60.0-9 9.0 high Not Available [facility] [address], [place], [address], 08/25/2024 12:03:06 08/26/19 25 08/25/2024 CMP (FEMA LE) BUN (blood urea nitrogen) 12.0 mg/dL 10.0-2 6.0 Not Available [facility] [address], [place], [address], 08/25/2024 12:03:06 08/26/19 25 08/25/2024 CMP (FEMA LE) creatinine (serum) 0.7 mg/dL 0.4-1. 5 Not Available [facility] [address] [address], [place], [address], 08/25/2024 12:03:06 08/26/19 25 08/25/2024 CMP (FEMA LE) BUN/creatini ne ratio 17.14 ratio Not Available [address] [address], [place], [address], 08/25/2024 12:03:06 08/26/19 25 08/25/2024 CMP (FEMA LE) eGFR calculated 105.9 Not Available [facility] [address] [address], [place], [address], 08/25/2024 12:03:06 08/26/19 25 08/25/2024 CMP (FEMA LE) total protein 7.8 g/dL 6.0-8. 5 Not Available [facility] [address] [address], [place], [address], 08/25/2024 12:03:06 08/26/19 25 08/25/2024 CMP (FEMA LE) total bilirubin 0.3 mg/dL 0.2-1. 3 Not Available [facility] [address] [facility] [address], [place], [address], 08/25/2024 12:03:06 08/26/19 25 08/25/2024 CMP (FEMA LE) albumin 4.7 g/dL 3.5-5. 5 Not Available [facility] [address] [facility] [address], [place], [address], 08/25/2024 12:03:06 08/26/19 25 08/25/2024 CMP (FEMA LE) globulin 3.1 calc Not Available [place] [facility] [address] [facility] [address], [place], [address], 08/25/2024 12:03:06 08/26/19 25 08/25/2024 CMP (FEMA LE) AST (SGOT) 23.0 U/L 0.0-46 .0 Not Available [facility] [address], [place], [address], 08/25/2024 12:03:06 08/26/19 25 08/25/2024 CMP (FEMA LE) altv (SGPT) 21.0 U/L 13.0-6 9.0 normal Not Available [facility] [address], [place], [address], 08/25/2024 12:03:06 08/26/19 25 08/25/2024 CMP (FEMA LE) A/G ratio 1.5 ratio Not Available [facility] [address] [facility] [address], [place], [address], 08/25/2024 12:03:06 08/26/19 25 08/25/2024 CMP (FEMA LE) ALP phos 67.0 U/L 30.0-1 40.0 normal Not Available [facility] [address] [facility] [address], [place], [address], 08/25/2024 12:03:06 08/26/19 25 08/25/2024 CMP (FEMA LE) calcium 9.0 mg/dL 8.4-10 .5 Not Available [facility] [address] [facility] [address], [place], [address], 08/25/2024 12:03:06 08/26/19 25 08/25/2024 CMP (FEMA LE) sodium 139.0 mmol/ L 136.0- 145.0 Not Available [facility] [address] [facility] [address], [place], [address], 08/25/2024 12:03:06 08/26/19 25 08/25/2024 CMP (FEMA LE) potassium 4.1 mmol/ L 3.5-5. 1 Not Available [facility] [address] [facility] [address], [place], [address], 08/25/2024 12:03:06 08/26/19 25 08/25/2024 CMP (FEMA LE) chloride 103.0 mmol/ L 98.0-1 10.0 normal Not Available [facility] [address] [facility] [address], [place], [address], 08/25/2024 12:03:06 08/26/19 25 08/25/2024 CMP (FEMA LE) C02 28.0 mmol/ L 22.0-3 1.0 Not Available [facility] [address] [facility] [address], [place], [address], 08/25/2024 12:03:06 08/26/19 25 08/25/2024 CMP (FEMA LE) anion gap 8.0 calc Not Available [facility] [address] [facility] [address], [place], [address], 08/25/2024 12:03:06 08/26/19 25 08/25/2024 CMP (FEMA LE) osmolality 287.4 calc Not Available [facility] [address] [facility], [place], [address], 08/25/2024 12:03:06 08/26/19 25 08/25/2024 TSH TSH 0.93 uIU/m L 0.49-3 .82 normal Not Available [facility] [address] [facility] [address], [place], [address], 08/25/2024 12:41:48 08/26/19 25 08/29/2024 ALPHA GAL PANEL beef (F27) IgE 0.32 kU/L high Not Available [employer] [facility] [address] [place], [address], 08/29/2024 16:54:17 08/26/19 25 08/29/2024 ALPHA GAL PANEL class 0/1 Not Available [facility] [address] [place], [address], 08/29/2024 16:54:17 08/26/19 25 08/29/2024 ALPHA GAL PANEL gregg (F88) IgE 0.25 kU/L high Not Available [employer] [facility] [address] [place], [address], 08/29/2024 16:54:17 08/26/19 25 08/29/2024 ALPHA GAL PANEL class 0/1 Not Available [facility] [address] [place], [address], 08/29/2024 16:54:17 08/26/19 25 08/29/2024 ALPHA GAL PANEL pork (F26) IgE 0.19 kU/L high Not Available [employer] [facility] [address] [place], [address], 08/29/2024 16:54:17 08/26/19 25 08/29/2024 ALPHA GAL PANEL class 0/1 Not Available [employer] [facility] [address] [place], [address], 08/29/2024 16:54:17 08/26/19 25 08/29/2024 ALPHA GAL PANEL galactose alpha 1,3 galactose IgE 0.50 kU/L <0.10 high Resul ts above 0.1 kU/L indic ate an aller gen-s pecif ic IgE sensi tizat ion to galac tose- a-1,3 -gala ctose , and such patie nts are at risk for delay ed aller gic react ions follo wing beef, pork, or gregg consu mptio n. Circu latin g IgE antib odies may remai n undet ectab le despi te a convi ncing clini lazarus histo ry becau se these antib odies may be direc karl towar ds aller gens revea led or alter ed durin g indus trial proce ssing , cooki ng, or diges tion and there fore do not exist in the origi nal food for which the patie nt is teste d. Somet imes indiv idual s diagn osed with chron ic urtic aria may devel op IgE antib odies direc karl again st human thyro globu keara. Such antib odies may cross -reac t with the bovin e thyro globu keara used in Immun oCAP( R) Aller gen o215, alpha -Gal, leadi ng to a false -posi tive test resul t. A defin itive diagn osis shoul d be based on the evalu ation of both clini lazarus and labor atory findi ngs and not on any singl e diagn ostic metho d. Addit ional infor shira orellana can be found at http: //www .phad ia.co m Not Available [facility] [facility] [address] [address] , [place], [address], 08/29/2024 16:54:17 08/26/19 25 08/29/2024 INTER PRETA TION interpretati on Speci fic Level of Aller gen IGE Class kU/L Speci fic IGE Antib christie ----- ----- ---- ----- ----- ----- ---- 0 <0.10 Absen t/Und etect able 0/1 0.10- 0.34 Very Low Level 1 0.35- 0.69 Low Level 2 0.70- 3.49 Moder ate Level 3 3.50- 17.4 High Level 4 17.5- 49.9 Very High Level 5 50-10 0 Very High Level 6 >100 Very High Level The clini lazarus relev ance of aller gen resul ts of 0.10- 0.34 kU/L are undet ermin ed and inten ded for speci alist use. Aller gens denot ed with a inclu de resul ts using one or more stanislaw te speci fic reage nts. In those cases , the test was devel oped and its stanislaw tical perfo rmanc e davie cteri stics have been deter mined by [facility]. It has not been clear ed or appro cori by the U.S. Food and Drug Admin istra tion. This assay has been valid ated pursu ant to the CLIA regul ation s and is used for clini lazarus purpo ses. Not Available [employer] [facility] [address] [place], [address], 08/29/2024 16:54:18 Result Notes None recorded. Problems Name Problem SNOMED Code Status Onset Date Resolution Date Notes Provider Name and Address Organization Details Recorded Time Anxiety state 360235050 Active 2022 ANXIETY AND DEPRESSION ; Impression : Will see a counselor soon at the [facility].; Recorded 06/26/2022 2:42PM by Zenaida Sotelo CMT, Office Visit; Promoted; acuity set as *; LUCILA EPPERSON, [address], [address] , [facility] 5 11:06:26 Gestation al diabetes mellitus 26611518 Active 2022 GESTATIONA L DIABETES; 06/26/2022 2:42PM by Zenaida Sotelo CMT, Office Visit; Promoted; acuity set as *; Not Available [facility] 3 03:10:08 -induced hypertens ion 24094089 Active 2022 [facility] ( INDUCED HYPERTENSI ON); 06/26/2022 2:42PM by Zenaida Sotelo CMT, Office Visit; Promoted; acuity set as *; Not Available [facility] 3 03:10:08 Bacterial vaginosis 822060867 Active 2022 Jonas King MD [address] [place] [address], [address] [place] [address] , [facility] 3 12:14:37 Dysuria 94941574 Active 2022 Jonas King MD [address] [place] [address], [address] [place] [address] , [facility] 3 12:28:38 Upper respirato ry infection 09319379 Active 2023 Jonas King MD [address] [place] [address], [address] [place] [address] , [facility] 4 10:08:59 Problem Notes None recorded. Medical Equipment None Reported. Allergies Allergen ID Allergen Name Allergen Category Reaction Reaction Severity Criticality Documentation Date Start Date Code Code System Note Provider Name and Address Organization Details Recorded Time 73818 latex environme nt,medica tion Not available Not available Not available 12/27/2022 83032 91 RxNorm Comme nt: Recor ded 06/26 2:42P M by Issa barry CMT, Offic e Visit ; Promo karl; Elizabeth verduzco ce: *; ; Not Available [facility] 3 02:28:33 Medications Name Sig Start Date Stop Date Status Note LastModified by Organization Details LastModified Time dicloxaci llin 500 mg capsule take 1 capsule BY MOUTH FOUR TIMES DAILY for 10 days 08/20 completed Not Available Not Available Not Available prednison e 10 mg tablet TAKE 2-3 TABLETS BY MOUTH DAILY FOR 5-7 DAYS NEEDED FOR JOINT PAIN FLARE 10/21 completed Not Available Not Available Not Available sulfasala zine 500 mg tablet TAKE 1 TABLET BY MOUTH TWICE A DAY 2024 active Not Available Not Available Not Avai lable sertralin e 100 mg tablet TAKE 1 TABLET BY MOUTH EVERY DAY 2024 active Not Available Not Available Not Avai lable Miconazol e-3 200 mg vaginal supposito ry Insert 1 supposit ory every day by vaginal route at bedtime for 3 days. 08/20 completed Not Available Not Available Not Available metronida zole 500 mg tablet Take 1 tablet every 12 hours by oral route for 7 days. 08/20 completed Not Available Not Available Not Available Macrobid 100 mg capsule Take 1 capsule every 12 hours by oral route for 7 days. 08/20 completed Not Available Not Available Not Available buspirone 10 mg tablet TAKE 1 TABLET BY MOUTH THREE TIMES A DAY active Not Available Not Available No t Available hydroxyzi ne HCl 25 mg tablet TAKE 1 TABLET BY MOUTH EVERY DAY AT BEDTIME need appointm ent 08/20 completed Not Available Not Available Not Available magnesium at bedtime 08/20 completed 0; Recorded 06/26/19 2:43PM by Zenaida Sotelo CMT, Office Visit; Not Available Not Available Not Available Multivita mins daily 08/20 completed 0; Recorded 06/26/19 2:43PM by Zenaida Sotelo CMT, Office Visit; Not Available Not Available Not Available Humulin N NPH U-100 Insulin KwikPen 100 unit/mL (3 mL) subcutane ous ADMINIST ER SIX UNITS AT BEDTIME 08/20 completed Not Available Not Available Not Available TechLITE Pen Needle 32 gauge x 5/32 USE UP TO FOUR TIMES DAILY WITH INSULIN PEN 08/20 completed Not Available Not Available Not Available Ozempic 0.25 mg or 0.5 mg (2 mg/1.5 mL) subcutane ous pen injector INJECT 0.25 MG SUB-Q WEEKLY FOR 4 WEEKS, THEN INCREASE TO 0.5 MG WEEKLY 10/21 completed Not Available Not Available Not Available Rybelsus 3 mg tablet TAKE 1 TABLET BY MOUTH ONCE DAILY FOR 30 DAYS 10/21 completed Not Available Not Available Not Available Mounjaro 5 mg/0.5 mL subcutane ous pen injector INJECT 5 MG SUBCUTAN EOUSLY ONCE WEEKLY FOR FOUR WEEKS. 10/21 completed Not Available Not Available Not Available Mounjaro 2.5 mg/0.5 mL subcutane ous pen injector INJECT 2.5 MG SUBCUTAN EOUSLY ONCE WEEKLY FOR FOUR WEEKS. 10/21 completed Not Available Not Available Not Available Vitals Date Recorded Body height Body mass index (BMI) Body weight Oxygen saturation Heart rate Respiratory rate Systolic And Diastolic Provider Name and Address Organization Details Last Updated DateTime 4 170.18 cm 29.8 kg/m2 95067.5 5 g 99 % 80 /min 20 /min 124/76 mm[Hg] ZENAIDA SOTELO [facility] 4 13:46:34 Date Recorded Body height Body mass index (BMI) Body weight Oxygen saturation Heart rate Respiratory rate Systolic And Diastolic Provider Name and Address Organization Details Last Updated DateTime 5 170.18 cm 31 kg/m2 83634.2 9 g 97 % 78 /min 20 /min 112/68 mm[Hg] ZENAIDA ASHLEIGH [facility] 5 10:46:11 Date Recorded Body height Body mass index (BMI) Body weight Oxygen saturation Heart rate Respiratory rate Body temperature Provider Name and Address Organization Details Last Updated DateTime 3 170.18 cm 29.9 kg/m2 41393.1 4 g 100 % 87 /min 20 /min 98.2 [degF] TRAY MABRY [facility] 3 15:40:53 Date Recorded Body height Body mass index (BMI) Body weight Oxygen saturation Heart rate Respiratory rate Body temperature Systolic And Diastolic Provider Name and Address Organization Details Last Updated DateTime 4 170.18 cm 29.9 kg/m2 45990.4 2 g 98 % 103 /min 16 /min 98.4 [degF] 112/74 mm[Hg] Laverne Reardon [facility] 4 09:18:08 Date Recorded Body weight Oxygen saturation Heart rate Respiratory rate Systolic And Diastolic Provider Name and Address Organization Details Last Updated DateTime 4 64047.7 7 g 99 % 90 /min 20 /min 120/70 mm[Hg] ZENAIDA SOTELO [facility] 4 12:51:54 Social History Question Answer Notes LastModified by Organizat ion Details LastModified Time Tobacco Smoking Status Never Smoker [facility] 08/21/2023 13:47:22 What Is Your Relationship Status? Information not available 08/21/2023 Sex: Unknown Functional Status Question Answer Note LastModified by Organizat ion Details LastModified Time Do you use any illicit or recreational drugs? No [email or web address] Information not available 08/21/2023 What is your level of alcohol consumption? Occasional [email or web address] Information not available 08/21/2023 Are you currently employed? Yes [email or web address] Information not available 08/21/2023 Are you able to care for yourself independently? Yes [email or web address] Information not available 08/21/2023 Mental Status None recorded. Family History Relationship Description Onset Age of this Age Resolved Age Notes LastModified by Organization Details LastModified Time Mother Diabetes mellitus [email or web address] Not available 08/20 13:46:56 Medical History Condition Response Depression Y Anxiety Disorder Y Gynecological History Statement/Question Response Abnormal Pap N Current Control Method None Obstetrics History GPAL:G 0 P 0 0 0 0 Immunizations Vaccine Type Date Status Note Provider Nam e and Address Organization Details Recorded Time TST-PPD intradermal 8 completed Not Available [facility] 12/27/2022 02:51:53 Influenza, split virus, trivalent, preservative 7 completed Not Available [facility] 02:51:54 Past Encounters Encounter ID Performer Location Encounter Start Date Encounter Closed Date Diagnosis/Indication Diagnosis SNOMED-CT Code Diagnosis ICD10 Code Diagnosis IMO Codes Diagnosis Note [id number] BEATRIZ MERIDA [facility] ([facility]) [address] [place] [address] 09/23/2022 18:19:05 09/29/2022 17:01:23 Dysuria 50646125 R30.0 White vagi nal discharge 652264169 N89.8 Gestation period, 6 weeks 40434303 Z3A.01 Spotting p er vagina in 472763538 O26.851 [id number] Jonas King MD [facility] ([facility]) [address] [place] [id number] 10/21/2022 11:42:36 11/03/2022 05:59:26 Dysuria 85422243 R30.0 Bacterial vaginosis [id number] [id number] N76.0 based on history this is likely BV. Start Flagyl. Patient has OB visit next week. [id number] KARYNA KIRKLAND PA-C [facility] ([facility]) [address] [place] [id number] 11/03/2022 15:21:39 11/17/2022 21:36:03 Dysuria 22096404 R30.0 Vaginal discharge 098806 006 N89.8 Acute urin wilmer tract infection 874627168 N39.0 [id number] BEATRIZ MORENO [facility] ([facility]) [address] [place] [phone] 5 08/21/2023 13:32:19 08/21/2023 16:09:02 Renewal of prescription 988350561 Z76.0 Adult heal th examination 202495198 Z00.00 Nausea 453715333 R11.0 sick after eating meat, multiple tick bites Past pregn kandis history of gestational diabetes mellitus 244361580 Z86.32 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 Advised to drink plenty of fluids, run a cool-mist humidifier in room at night, gargle salt water for sore throat, and get plenty of rest. Patient should avoid over-exert ion and reduce exposure to irritants such as smoke, cold, dry air, and dust. Treatment currently involves symptomati c relief. Patient may take acetaminop hen or ibuprofen as directed to reduce fever and body aches. Antihistam ine and decongesta nt usage was discussed and recommenda tions made. Patient understood these instructio ns and will follow up in the office in 7-10 days if symptoms not improving. [id number] BEATRIZ MORENO [facility] ([facility]) [address] [place] [id number] 5 02/19/2024 11:58:49 02/19/2024 14:05:17 Irritable bowel syndrome 72851522 K58.9 Allergy to becmzrctj-wmuwq-5,3 galactose 044674805 Z88.8 [id number] BEATRIZ MORENO [facility] ([facility]) [address] [place] [id number] 5 08/25/2024 10:00:10 08/25/2024 11:10:35 Allergy to arimrgeqp-ayiad-5,3 galactose 633013225 Z88.8 Anxiety state 530545802 F41.9 Continue current medication s. Patient reports they are working well. Health Concerns Section Related Observation LastModified by Organization Detai ls LastModified Time None Recorded Concern Status LastModified by Organization Details LastModified Time None Recorded Advance Directives Directive None Recorded Payers Insurance Date Sequence Insurance Name Policy Number Policy Bryson Covered Member ID Bryson Member ID Guarantor Name 08/25/2024 1 [place] [id number] Trextin Flavia [id number] Analia Alejandro 08/25/2024 4 [facility] Analai Alejandro [id number] Analia Alejandro 08/25/2024 3 [place] Analia Alejandro [id number] Analia Alejandro 08/25/2024 [place] [facility] ([facility]) [id number] Analia Alejandro [id number] Analia Alejandro 08/25/2024 1 [place] [id number] Analia Alejandro [id number] Analia Alejandro 08/25/2024 2 [place] [id number] jason Quintanilla Flavia [id number] Analia Alejandro Notes Date Note Type Note Provider Name and Address Organization Details Recorded Time 11/04/19 23 text/htm l VaginitisReported by PatientROS as noted in the HPI PATIENT REPORTS SHE HAS BEEN TREATED 2X FOR BV RECENTLY AND FEELS LIKE SHE HAS IT AGAIN FOR THE 3RD TIME. WITH LAST TREATMENT SHE WAS TOLD BY HER OB [place] TO CALL THEIR OFFICE IF SHE HAD RENEWED SYMPTOMS. PATIENT STATES SHE AHS TRIED TO CONTACT THAT OFFICE FOR 5 DAYS WITH NO SUCCESS. KARYNA KIRKLAND PA-C [address] [place], [address], [facility] 11/14/2022 10:43:18 08/21/19 24 text/htm l Anxiety/DepressionReported by PatientHPIFor severity, patient reportsdenies suicidal ideations,symptoms improved, andstabilizing. For context, patient reportsno major life stressors. BEATRIZ MORENO [address] [place], [address], [facility] 09/10/2023 07:31:58 12/24/19 24 text/htm l Sore ThroatReported by Patient HeadacheReported by PatientHPIFor severity, patient reportsworsebut reportsmild. For associated symptoms, patient reportsnauseaandnasal congestion/discharge. For location, patient reportsfacialandincluding neck. For duration, patient reportsconstant. For onset/timing, patient reportsgradual. For aggravating factors, patient reportsloud noise,visual stimuli or light, andworse with upright position. For alleviating factors, patient reportsotc medication.advil helped headache for about an hour Sinusitis/AllergyReported by PatientROS as noted in the HPI walk in patientPatient reports having a headache for 5 days and yesterday her nose started feeling stopped up. she is having body aches Jonas King MD [address] [place], [address], [facility] 12/24/2023 10:09:59 02/19/20 24 text/htm l Abdominal PainReported by PatientAbdominal PainFor quality, patient reportscramping. For location, patient reportsgeneralized. For severity, patient reportsbetter. For duration, patient reportsintermittent. For onset/timing, patient reportschronic.ROS as noted in the HPI LUCILA EPPERSON, [facility] [address] [place], [address], [facility] 03/16/2024 17:22:34 OBGyn Episode Ob Episode Information Episode Created Date Number of Fetuses Patient Bloodtype Patient rh Status Prepregnancy Weight lbs Domestic Partner Domestic Partner Phone Father Name Produce Laborer Status 08/21/19 24 1 CLOSED Fetus Data First Name Last Name Admitted to NICU Weight (g) Sex Living Outcome Pediatric Complications Fetus ID Race Codes Race Delivery Type M Full Term 4063 VAGINAL Bridger Calculation Initial Bridger Date Initial Exam Date Initial Exam Provider Initial Ultrasound Date Last Menstrual Period Date Ultra Sound Weeks Gestation 0 Eighteen To Twenty Week Bridger Update Ultra Sound Date Fundal Height At Umbil Quickening Date Ultra Sound Latest Weeks Gestation Final Bridger Confirmed By Final Bridger Confirmed Date Final Bridger Date Ultra Sound Latest Days Gestation 0 0 Menstrual History Last Menstrual Date Menses Monthly On Bcp Conception Prior Menses Frequency Hcg Plus Date Menarche Onset Age Delivery Information Delivery Date Delivery Type Labor Anesthesia Weeks Gestation Incision Type Labor Labor Length Hrs Delivered By Post Complications Tubal Sterilization Discharge Date Comments 0 Gestatio n al Diabetes Discharge Information Feeding Method Contraceptive Method Maternal HG B and HCT Levels Ob Episode Information Episode Created Date Number of Fetuses Patient Bloodtype Patient rh Status Prepregnancy Weight lbs Domestic Partner Domestic Partner Phone Father Name Produce Laborer Status 08/21/19 24 1 CLOSED Fetus Data First Name Last Name Admitted to NICU Weight (g) Sex Living Outcome Pediatric Complications Fetus ID Race Codes Race Delivery Type F Full Term 4064 VAGINAL Bridger Calculation Initial Bridger Date Initial Exam Date Initial Exam Provider Initial Ultrasound Date Last Menstrual Period Date Ultra Sound Weeks Gestation 0 Eighteen To Twenty Week Bridger Update Ultra Sound Date Fundal Height At Umbil Quickening Date Ultra Sound Latest Weeks Gestation Final Bridger Confirmed By Final Bridger Confirmed Date Final Bridger Date Ultra Sound Latest Days Gestation 0 0 Menstrual History Last Menstrual Date Menses Monthly On Bcp Conception Prior Menses Frequency Hcg Plus Date Menarche Onset Age Delivery Information Delivery Date Delivery Type Labor Anesthesia Weeks Gestation Incision Type Labor Labor Length Hrs Delivered By Post Complications Tubal Sterilization Discharge Date Comments 3 Gestbrento n al Diabetes Discharge Information Feeding Method Contraceptive Method Maternal HG B and HCT Levels
[2025-05-02 10:40] LABS: Glucose Urine UA Negative (Normal); Nitrate Urine Negative (Negative); Specific Gravity, Urine 1.026 (1.005-1.030)
[2025-05-02] MEDS: iohexol 350 mg/mL 500 mL Btl (per mL) IV (10:40)
[2025-05-02 11:39] LABS: Lactic Sepsis W/Reflex 0.8 mmol/L (0.5-2.2)
--- NOTE | 2025-05-02 13:03 | US_ITS ---
WS: [id number] ULTRASOUND PELVIS TECHNIQUE: Transabdominal and transvaginal. ULTRASOUND PELVIS TECHNIQUE: Transabdominal and transvaginal. CLINICAL INFORMATION: Abdominal pain. Evaluate ovaries and uterus LMP: 04/10 : No. COMPARISON: CT earlier today FINDINGS: Uterus Orientation: Retroverted and retroflexed Size: 7.8 cm x 5.1 cm x 4.0 cm. Masses: No uterine fibroids. Cervix: Incidental nabothian cysts in the cervix. Endometrium: Smooth Endometrium thickness: 1.4 cm. Adnexa: Normal. Right ovary size: 2.8 cm x 2.9 cm x 2.7 cm. Right ovary volume: 11.7 ccm3. Left ovary size: 3.1 cm x 2.6 cm x 2.0 cm. Left ovary volume: 8.2 ccm3 Free fluid: Present Other findings: None. US/US pelv w/transvag [id number] IMPRESSION: 1. Thickened endometrium measuring 14 mm physiologic in a patient this age. 2. Bilateral ovaries visualized with normal vascularity. 3. Small RIGHT ovarian cyst measuring 1.5 x 1.2 cm 4. Nabothian cysts in the cervix.
== END 2025-05-02 15:31 | disposition home or self-care (01) ==
PROVIDERS: Emergency Provider Emergency Medicine; PCP Nurse Practitioner Family
DX: K52.9 Noninfective gastroenteritis and colitis, unspecified (principal)
CPT/HCPCS: 36415; 74177; 76830; 76856; 80053; 81001; 83605; 83690; 84703; 85025; 86140; 87040; 96374; 96375; 99285; J1171; J2405